=== PATIENT | female | born 1925 ===

== ENCOUNTER 2016-05-15 13:52 | Inpatient (IN) | payer MEDICARE, MEDICAID ==
--- NOTE | 2016-05-15 14:11 | ED PDOC ---
HPI: SOB/CHF/COPD Time Seen by Provider: 05/15/16 14:07 Chief Complaint (Nursing): Chest Pain Chief Complaint (Provider): shortness of breath History Per: Patient History/Exam Limitations: no limitations Current Symptoms Are (Timing): Still Present Additional Complaint(s): 89yo female comes to the ED complaining of shortness of breath, with chest tightness. Patient has had cough with white sputum for 1.5 months. No fever. She 's been using her inhaler without relief. Arnol Mccoy Past Medical History Reviewed: Historical Data, Nursing Documentation, Vital Signs Vital Signs: Last Vital Signs Temp 98.0 F 05/15/16 14:06 Pulse 98 H 05/15/16 16:32 Resp 20 05/15/16 16:32 BP 150/90 05/15/16 16:32 Pulse Ox 99 05/15/16 14:14 - Medical History PMH: Asthma, Diabetes, HTN, Hypercholesterolemia, Osteoporosis - Surgical History Surgical History: Cholecystectomy, - Family History Family History: States: Unknown Family Hx - Living Arrangements Living Arrangements: With Family - Home Medications Home Medications: Ambulatory Orders Medication Instructions Recorded Albuterol Sulfate [Proair Hfa] 1 puff IH BID 05/15/16 Alendronate [Fosamax] 5 mg PO DAILY 05/15/16 DULoxetine [Cymbalta] 60 mg PO BID PRN 05/15/16 Glimepiride [Amaryl] 1 mg PO DAILY 05/15/16 Lisinopril [Zestril] 10 mg PO DAILY 05/15/16 Memantine HCl 10 mg PO DAILY 05/15/16 MetFORMIN [glucOPHAGE] 1,000 mg PO BID 05/15/16 Montelukast [Singulair] 10 mg PO DAILY 05/15/16 SITagliptin [Januvia] 100 mg PO DAILY 05/15/16 amLODIPine [Norvasc] 5 mg PO DAILY 05/15/16 - Allergies Allergies/Adverse Reactions: Allergies Allergy/AdvReac Type Severity Reaction Status Date / Time No Known Allergies Allergy Verified 08/29/14 18:26 Review of Systems ROS Statement: Except As Marked, All Systems Reviewed And Found Negative Constitutional: Negative for: Fever Cardiovascular: Positive for: Chest Pain Respiratory: Positive for: Cough, Shortness of Breath, Sputum Physical Exam - Reviewed Nursing Documentation Reviewed: Yes Vital Signs Reviewed: Yes - Physical Exam Appears: Positive for: Well, Non-toxic, No Acute Distress Head Exam: Positive for: ATRAUMATIC, NORMAL INSPECTION, NORMOCEPHALIC Skin: Positive for: Warm, Dry Eye Exam: Positive for: EOMI, PERRL Cardiovascular/Chest: Positive for: Regular Rate, Rhythm Respiratory: Positive for: Rhonchi (scattered), Wheezing (expiratory). Negative for: Rales, Respiratory Distress Extremity: Positive for: Normal ROM Neurologic/Psych: Positive for: Alert, Oriented - ECG O2 Sat by Pulse Oximetry: 99 (RA) Pulse Ox Interpretation: Normal Disposition - Clinical Impression Clinical Impression: Bronchitis, Exacerbation of asthma, Failure of outpatient treatment - Patient ED Disposition Is Patient to be Admitted: Yes - Disposition Disposition Time: 17:03 Condition: FAIR - Pt Status Changed To: Hospital Disposition Of: Inpatient - Admit Certification Admit to Inpatient:: After my assessment, the patient will require hospitalization for at least two midnights. This is because of the severity of symptoms shown, intensity of services needed, and/or the medical risk in this patient being treated as an outpatient. - POA Present On Arrival: None Additional Comments - Additional Comments Additional Comments: Scribe Attestation: Documented by Malik Fritz acting as a scribe for Johan Camejo MD. Provider Scribe Attestation: All medical record entries made by the Scribe were at my direction and personally dictated by me. I have reviewed the chart and agree that the record accurately reflects my personal performance of the history, physical exam, medical decision making, and the department course for this patient. I have also personally directed, reviewed, and agree with the discharge instructions and disposition.
[2016-05-15] MEDS ORDERED: Albuterol-Ipratrop 3 mg / 0.5 (3 ml) UD IH STA (14:14)
--- NOTE | 2016-05-15 14:39 | RAD ---
HISTORY: SOB COMPARISON: Chest x-ray performed 11/21/10 TECHNIQUE: Chest PA and lateral FINDINGS: LUNGS: Chronic appearing interstitial markings. Biapical pleural thickening. Right upper lobe atelectasis or infiltrates, right greater than left. Please note that chest x-ray has limited sensitivity for the detection of pulmonary masses. PLEURA: No significant pleural effusion identified. Question tiny right apical pneumothorax versus artifact due to confluence of shadows. CARDIOVASCULAR: Heart size appears within normal limits. Ectatic aorta. OSSEOUS STRUCTURES: Osseous demineralization. Degenerative changes. VISUALIZED UPPER ABDOMEN: Unremarkable. OTHER FINDINGS: None. IMPRESSION: Question tiny right apical pneumothorax versus artifactual appearance due to confluence of shadows. Expiratory chest x-ray suggested for further assessment. Chronic appearing interstitial markings. Biapical pleural thickening. Right upper lobe atelectasis or infiltrates, right greater than left. Findings discussed with Dr. Camejo on 05/15/16 at 2:34 p.m..
[2016-05-15] MEDS ORDERED: Albuterol-Ipratrop 3 mg / 0.5 (3 ml) UD ONE (14:45)
[2016-05-15 14:56] LABS: VENOUS BLOOD GAS BASE EXCESS 6.1 mmol/L (0.0-2.0); VENOUS BLOOD GAS PCO2 61 mmHg (40-60); VENOUS BLOOD PH 7.35 (7.32-7.43)
[2016-05-15] MEDS ORDERED: Azithromycin 500 MG in Sodium Chloride 0.9% 250 ML IVPB STA (14:58)
[2016-05-15] MEDS ORDERED: cefTRIAXone (Rocephin) 1 gm Inj ONE (15:09)
--- NOTE | 2016-05-15 16:47 | CT ---
CT chest without IV contrast Indication: Pneumothorax on chest x-ray Technique: Contiguous axial images were obtained through the chest without intravenous contrast enhancement. Sagittal and coronal reconstructions were generated and reviewed. Radiation dose (DLP): 245.98 MGy-cm. Comparison: Chest x-ray performed earlier the same day Findings: Visualized portions of the inferior thyroid gland appear heterogeneous. The mediastinal and hilar vascular structures appear within normal limits. The heart appears within normal limits of size. Dense coronary artery calcifications. Sub cm mediastinal lymph nodes, nonspecific. Please note the lack of IV contrast limits evaluation for adenopathy, in particular hilar adenopathy. Coarsened chronic appearing interstitial markings most prominent within the lung apices, right greater than left. No pleural effusion. No pneumothorax. Emphysematous changes. Limited visualization of the upper abdomen demonstrates 11 mm low-density lesion within the right hepatic lobe, possibly cyst. Osseous demineralization. Kyphosis. Multilevel degenerative changes. Impression: No pneumothorax. Appearance on chest radiograph performed the same day artifactual. Coarse and chronic appearing interstitial markings most prominent within the lung apices, right greater than left. Emphysematous changes. Heterogeneous appearance of the thyroid gland. Hepatic lobe low-density lesion, possibly cyst.
[2016-05-15 17:03] LABS: ALKALINE PHOSPHATASE 61 U/L (38-126); ALT/SGPT 26 U/L (9-52); AST/SGOT 48 U/L (14-36); BILIRUBIN,TOTAL 0.7 mg/dl (0.2-1.3); BLOOD UREA NITROGEN 15 mg/dl (7-17); CALCIUM 9.9 mg/dL (8.4-10.2); CARBON DIOXIDE 24 mmol/L (22-30); CHLORIDE 99 mmol/L (98-107); GFR AFRICAN-AMERICAN > 60; GLUCOSE,RANDOM 214 mg/dL (65-105); SODIUM 132 mmol/l (132-148); TOTAL PROTEIN 8.6 G/DL (6.3-8.2)
[2016-05-15 17:09] LABS: POTASSIUM 5.6 MMOL/L (3.6-5.0)
[2016-05-15 17:18] LABS: BASO # 0.1 K/uL (0.0-0.2); BASO % 1.1 % (0.0-2.0); EOS # 0.4 K/uL (0.0-0.7); EOS % 5.7 % (0.0-4.0); HEMATOCRIT 41.3 % (34.0-47.0); LYMPH # 1.3 K/uL (1.0-4.3); LYMPH % 17.2 % (20.0-40.0); MEAN CELL VOLUME 93.7 fl (81.0-99.0); MEAN CORPUSCULAR HEMOGLOBIN 31.2 pg (27.0-31.0); MEAN CORPUSCULAR HGB CONC 33.3 g/dL (33.0-37.0); MEAN PLATELET VOLUME 9.6 fl (7.2-11.7); MONO # 0.3 K/uL (0.0-0.8); MONO % 4.4 % (0.0-10.0); NEUT # 5.6 K/uL (1.8-7.0); NEUT % 71.6 % (50.0-75.0); NRBC % 0.1 % (0.0-0.0); RED CELL DISTRIBUTION WIDTH 13.2 % (11.5-14.5); WHITE BLOOD COUNT 7.8 K/uL (4.8-10.8)
--- NOTE | 2016-05-16 07:17 | CARD ---
APPROVED REPORT EKG Measurement Heart [id number] <Conclusion> Normal sinus rhythm Nonspecific T wave abnormality Abnormal ECG
[2016-05-16 08:03] VITALS: BMI 17.2
[2016-05-16] MEDS ORDERED: GlipiZIDE 2.5 mg SR Tab PO SCH (09:00)
[2016-05-16] MEDS ORDERED: ALENDRONATE 10 MG TAB PO SCH (09:00)
[2016-05-16] MEDS: Albuterol HFA 90 mcg/actuation (8 g) IH SCH ×2 (10:35→16:31)
[2016-05-16 11:52] LABS: BLOOD UREA NITROGEN 15 mg/dl (7-17); CALCIUM 9.2 mg/dL (8.4-10.2); CARBON DIOXIDE 25 mmol/L (22-30); CHLORIDE 102 mmol/L (98-107); GFR AFRICAN-AMERICAN > 60; GLUCOSE,RANDOM 257 mg/dL (65-105); SODIUM 140 mmol/l (132-148)
--- NOTE | 2016-05-16 14:05 | CP.PCM.HP ---
<Rosa Burleson - Last Filed: 05/16/16 14:06> History of Present Illness - History of Present Illness History of Present Illness: Pt is a 89 y/o female with history of diabetes, HTN , mild intermitent asthma who presented to ED with cc of sob, chest tightness and non productive cough. Patient has had cough with white sputum for 1.5 months. No fever. She's been using her inhaler without relief. Pt was seen and examined at bedside this morning, sob and chest tightness is much better, denies any nausea, vomiting, diarrhea, palpitations and headaches Present on Admission - Present on Admission Any Indicators Present on Admission: Yes History of Uncontrolled Diabetes: Yes Review of Systems - Review of Systems All systems: reviewed and no additional remarkable complaints except Review of Systems: per HPI Past Patient History - Infectious Disease Hx of Infectious Diseases: None - Past Social History Smoking Status: Never Smoked - CARDIAC Hx Hypercholesterolemia: Yes Hx Hypertension: Yes - PULMONARY Hx Asthma: Yes - ENDOCRINE/METABOLIC Hx Endocrine Disorders: Yes - MUSCULOSKELETAL/RHEUMATOLOGICAL Hx Falls: No Hx Osteoporosis: Yes - PSYCHIATRIC Hx Substance Use: No - SURGICAL HISTORY Hx Cholecystectomy: Yes - ANESTHESIA Hx Anesthesia: Yes Hx Anesthesia Reactions: No Meds Allergies/Adverse Reactions: Allergies Allergy/AdvReac Type Severity Reaction Status Date / Time No Known Allergies Allergy Verified 08/29/14 18:26 Physical Exam - Constitutional Appears: Non-toxic, No Acute Distress - Eye Exam Eye Exam: Normal appearance - ENT Exam ENT Exam: Mucous Membranes Moist - Respiratory Exam Respiratory Exam: Clear to Auscultation Bilateral, NORMAL BREATHING PATTERN. absent: Decreased Breath Sounds, Wheezes, Respiratory Distress - Cardiovascular Exam Cardiovascular Exam: REGULAR RHYTHM, +S1, +S2 - GI/Abdominal Exam GI & Abdominal Exam: Normal Bowel Sounds, Soft. absent: Tenderness - Extremities Exam Extremities exam: Negative for: calf tenderness - Neurological Exam Neurological exam: CN II-XII Intact Results - Vital Signs Recent Vital Signs: Last Vital Signs Temp 98.1 F 05/16/16 08:00 Pulse 77 05/16/16 08:00 Resp 18 05/16/16 08:00 BP 134/67 05/16/16 08:00 Pulse Ox 98 05/16/16 08:00 - Labs Result Diagrams: 05/15/16 14:40 05/16/16 11:40 Labs: Laboratory Results - last 24 hr 05/16/16 05/16/16 10:27 11:40 Sodium 140 Potassium 4.0 Chloride 102 Carbon Dioxide 25 Anion Gap 17 BUN 15 Creatinine 0.6 L Est GFR ( Amer) > 60 Est GFR (Non-Af Amer) > 60 Random Glucose 257 H Calcium 9.2 Troponin I < 0.0120 Assessment & Plan - Assessment and Plan (Free Text) Assessment: 89 y/o female diabetic, HTN and HLD admitted for asthma exacerbation Plan: 1. Mild Intermittent acute asthma exacerbation Continue with inhaler as ordered Steriod Q6hrs as ordered, will trend down in the Am continue to monitor 2. Non insulin dependent diabetic Accuchecks SSI resume home meds 3. HTN resume home meds monitor BP 5. Diet- heart healthy 6. DVT prophylaxis- Lovenox SC <Paulie Weaver - Last Filed: 05/19/16 12:38> Results - Vital Signs Recent Vital Signs: Last Vital Signs Temp 98.3 F 05/19/16 08:06 Pulse 66 05/19/16 09:21 Resp 18 05/19/16 08:06 BP 120/74 05/19/16 09:21 Pulse Ox 99 05/19/16 08:06 - Labs Result Diagrams: 05/15/16 14:40 05/16/16 11:40 Labs: Laboratory Results - last 24 hr 05/18/16 05/18/16 05/18/16 11:25 16:05 21:46 POC Glucose (mg/dL) 360 H 110 254 H Assessment & Plan - Assessment and Plan (Free Text) Assessment: Patient was personally seen and examined by me in rounds with residents. Available labs and diagnostic data reviewed. Case, Patient's condition and management plan discussed with residents in rounds. Agree with resident's documentation. Plan: As ordered. Paulie Weaver MD
--- NOTE | 2016-05-16 14:45 | PQF GENQUE ---
Dr. Weaver, (1)In agreement with BMI: 17.2: listed in the EMR ? if yes: (2) please include the BMI in your progress note (3) is there an associated diagnosis to go along with the BMI? or Small framed etc. OR: Disagree OR: Other explanation of clinical findings This form is a permanent part of the medical record Clarification of your documentation is requested to better reflect the severity of illness and intensity of treatment of your patient. Indicators present [] Specify: [] [] Specify: [] [] Specify: [] [] Specify: [] Location in the medical record that reflects the above clinical findings: [] Treatment Provided: [] PHYSICIAN'S RESPONSE Based on your medical judgment of the clinical indicators outlined above please clarify the following: [] Practitioner response [] If unable to determine, please check the box, sign and date. Present On Admission (POA) Indicator: [] Present at the time of admission [] Not present at the time of admission [] Clinically Undetermined In responding to this query, please exercise your independent professional judgment. The fact that a question is asked does not imply that any particular answer is desired or expected. Thank you for your clarification on this documentation. If you have any questions please call:[ ] * Thank you, [ ] box car checker DEBRA
--- NOTE | 2016-05-16 14:53 | PQF GENQUE ---
Dr. Weaver, (1) COPD ruled in or ruled out? (2) if COPD is ruled in acuity? : Stable versus Acute Exacerbation ? OR: Unable to determine OR: Other explanation of clinical finding ER note: HPI: SOB/CHF/COPD H and P: Mild Intermittent acute asthma exacerbation -inhaler, steroid IV q 6 hr.: trend down in AM This form is a permanent part of the medical record Clarification of your documentation is requested to better reflect the severity of illness and intensity of treatment of your patient. Indicators present [] Specify: [] [] Specify: [] [] Specify: [] [] Specify: [] Location in the medical record that reflects the above clinical findings: [] Treatment Provided: [] PHYSICIAN'S RESPONSE Based on your medical judgment of the clinical indicators outlined above please clarify the following: [] Practitioner response [] If unable to determine, please check the box, sign and date. Present On Admission (POA) Indicator: [] Present at the time of admission [] Not present at the time of admission [] Clinically Undetermined In responding to this query, please exercise your independent professional judgment. The fact that a question is asked does not imply that any particular answer is desired or expected. Thank you for your clarification on this documentation. If you have any questions please call. * Thank you, Debo Rodriguez RN BSN ext. #[phone] MTDD
[2016-05-16] MEDS: methylPREDNISolone 60 MG in Sodium Chloride 0.9% 50 ML IVPB SCH ×2 (16:30→21:27)
[2016-05-16] MEDS: Enoxaparin 40 mg Syringe SC SCH (16:32)
--- NOTE | 2016-05-16 21:19 | CP.PCM.CON ---
History of Present Illness - History of Present Illness History of Present Illness: I was asked to see patiient by Dr. Weaver. Patient is a 89 year old female with PMH HTN, DM, hypercholesterolemia who presents with dyspnea. The patient has noted symptoms for the last month, consisting of progressive cough, productive of yellowish sputum, The patient had continued dyspnea, and therefore presented to [facility]. She appeared volume overlaoded in the ER. She denies chest pain. Review of Systems - Constitutional Constitutional: absent: As Per HPI, Anorexia, Chills, Daytime Sleepiness, Excessive Sweating, Fatigue, Fever, Frequent Falls, Headache, Increased Appetite , Lethargy, Malaise, Night Sweats, Snoring, Sleep Apnea, Weight Gain, Weight Loss, Weakness, Other - EENT Eyes: absent: As Per HPI, Blind Spots, Blurred Vision, Change in Vision, Decreased Night Vision, Diplopia, Discharge, Dry Eye, Exophthalmos, Floaters, Irritation, Itchy Eyes, Loss of Peripheral Vision, Pain, Photophobia, Requires Corrective Lenses, Sees Flashes, Spots in Vision, Tunnel Vision, Other Visual Disturbances, Loss of Vision, Other Ears: absent: As Per HPI, Decreased Hearing, Ear Discharge, Ear Pain, Tinnitus, Abnormal Hearing, Disequilibrium, Dizziness, Other Nose/Mouth/Throat: absent: As Per HPI, Epistaxis, Nasal Congestion, Nasal Discharge, Nasal Obstruction, Nasal Trauma, Nose Pain, Post Nasal Drip, Sinus Pain, Sinus Pressure, Bleeding Gums, Change in Voice, Dental Pain, Dry Mouth, Dysphagia, Halitosis, Hoarsness, Lip Swelling, Mouth Lesions, Mouth Pain, Odynophagia, Sore Throat, Throat Swelling, Tongue Swelling, Facial Pain, Neck Pain, Neck Mass, Other - Breasts Breasts: absent: As Per HPI, Change in Shape, Mass, Pain, Nipple Discharge, Nipple Inversion, Skin Changes, Swelling, Other - Cardiovascular Cardiovascular: Dyspnea - Respiratory Respiratory: Cough, Dyspnea - Gastrointestinal Gastrointestinal: absent: As Per HPI, Abdominal Pain, Belching, Bloating, Change in Bowel Habits, Change in Stool Character, Coffee Ground Emesis, Constipation, Cramping, Diarrhea, Dyspepsia, Dysphagia, Early Satiety, Excessive Flatus, Fecal Incontinence, Heartburn, Hematemesis, Hematochezia, Loose Stools, Melena, Nausea, Odynophagia, Temesmus, Vomiting, Other - Genitourinary Genitourinary: absent: As Per HPI, Change in Urinary Stream, Difficulty Urinating, Dysuria, Flank Pain, Hematuria, Pyuria, Nocturia, Urinary Incontinence, Urinary Frequency, Urinary Hesitance, Urinary Urgency, Voiding Freq/Small Amts, Freq UTI, Hx Renal/Bladder Calculi, Hx /Renal Surgery, Bladder Distension, Other - Musculoskeletal Musculoskeletal: absent: As Per HPI, Abnormal Gait, Arthralgias, Atrophy, Back Pain, Deformity, Joint Swelling, Limited Range of Motion, Loss of Height, Muscle Cramps, Muscle Weakness, Myalgias, Neck Pain, Numbness, Radiating Pain into Limb, Stiffness, Tingling, Other - Integumentary Integumentary: absent: As Per HPI, Acne, Alopecia, Bleeding Lesions, Change in Hair, Change in Nails, Change in Pigmentation, Changing Lesions, Dry Skin, Erythema, Furuncle, Hirsutism, Lesions, New Lesions, Non-Healing Lesions, Photosensitivity, Pruritus, Rash, Skin Pain, Skin Ulcer, Sores, Striae, Swelling , Unusual Bruising, Wounds, Jaundice, Other - Neurological Neurological: absent: As Per HPI, Abnormal Gait, Abnormal Hearing, Abnormal Movements, Abnormal Speech, Behavioral Changes, Burning Sensations, Confusion, Convulsions, Disequilibrium, Dizziness, Numbness, Focal Weakness, Frequent Falls , Headaches, Lack of Coordination, Loss of Vision, Memory Loss, Paresthesias, Radicular Pain, Restless Legs, Sensory Deficit, Syncope, Tingling, Tremor, Vertigo, Weakness, Other Visual Disturbances, Other - Endocrine Endocrine: absent: As Per HPI, Change in Body Appearance, Change in Libido, Cold Intolorance, Deepening of Voice, Excessive Sweating, Fatigue, Flushing, Heat Intolorance, Increase in Ring/Shoe/Hat Size, Palpitations, Polydipsia, Polyphagia, Polyuria, Other - Hematologic/Lymphatic Hematologic: absent: As Per HPI, Easy Bleeding, Easy Bruising, Lymphadenopathy, Other Past Patient History - Infectious Disease Hx of Infectious Diseases: None - Past Social History Smoking Status: Never Smoked - CARDIAC Hx Hypercholesterolemia: Yes Hx Hypertension: Yes - PULMONARY Hx Asthma: Yes - ENDOCRINE/METABOLIC Hx Endocrine Disorders: Yes - MUSCULOSKELETAL/RHEUMATOLOGICAL Hx Falls: No Hx Osteoporosis: Yes - PSYCHIATRIC Hx Substance Use: No - SURGICAL HISTORY Hx Cholecystectomy: Yes - ANESTHESIA Hx Anesthesia: Yes Hx Anesthesia Reactions: No Meds Home Medications: Home Medication List Medication Instructions Recorded Confirmed Type Benzonatate [Tessalon Perles] 100 mg PO BID #30 sgl 05/19/16 Rx Methylprednisolone [Medrol Dose 4 mg PO DAILY #21 mg 05/19/16 Rx Pack (21 tabs)] Allergies/Adverse Reactions: Allergies Allergy/AdvReac Type Severity Reaction Status Date / Time No Known Allergies Allergy Verified 08/29/14 18:26 - Medications Medications: Current Medications Albuterol (Ventolin Hfa 90 Mcg/Actuation (8 G)) 1 puff IH BID [facility] Last Admin: 05/16/16 16:31 Dose: 1 puff Amlodipine Besylate (Norvasc) 5 mg PO DAILY [facility] Last Admin: 05/16/16 16:32 Dose: 5 mg Duloxetine HCl (Cymbalta) 60 mg PO BID PRN PRN Reason: Anxiety Enoxaparin Sodium (Lovenox) 40 mg SC DAILY [facility] PRN Reason: Protocol Last Admin: 05/16/16 16:32 Dose: 40 mg Glipizide (Glucotrol Xl) 2.5 mg PO DAILYWM [facility] Home Med (Patient's Own Medication) 1 unit PO ACB [facility] Methylprednisolone 60 mg/ (Sodium Chloride) 50.96 mls @ 100 mls/hr IVPB Q6 [facility] Last Admin: 05/16/16 16:30 Dose: 100 mls/hr Lisinopril (Zestril) 10 mg PO DAILY [facility] Last Admin: 05/16/16 10:36 Dose: 10 mg Memantine (Namenda) 10 mg PO DAILY [facility] Last Admin: 05/16/16 10:34 Dose: 10 mg Metformin HCl (Glucophage) 1,000 mg PO BID [facility] Last Admin: 05/16/16 16:33 Dose: 1,000 mg Montelukast Sodium (Singulair) 10 mg PO DAILY [facility] Last Admin: 05/16/16 10:35 Dose: 10 mg Sitagliptin Phosphate (Januvia) 100 mg PO DAILY [facility] Last Admin: 05/16/16 10:33 Dose: 100 mg Physical Exam - Constitutional Appears: Non-toxic - Head Exam Head Exam: NORMAL INSPECTION - Eye Exam Eye Exam: Normal appearance - ENT Exam ENT Exam: Mucous Membranes Moist - Neck Exam Neck exam: Positive for: Full Rom - Respiratory Exam Respiratory Exam: Decreased Breath Sounds - Cardiovascular Exam Cardiovascular Exam: REGULAR RHYTHM - GI/Abdominal Exam GI & Abdominal Exam: Normal Bowel Sounds - Rectal Exam Rectal Exam: Deferred - Extremities Exam Extremities exam: Positive for: pedal edema - Back Exam Back exam: NORMAL INSPECTION - Neurological Exam Neurological exam: Alert, Oriented x3 - Psychiatric Exam Psychiatric exam: Normal Affect - Skin Skin Exam: Normal Color Results - Vital Signs Recent Vital Signs: Last Vital Signs Temp 98.8 F 05/16/16 19:11 Pulse 92 H 05/16/16 19:11 Resp 20 05/16/16 19:11 BP 115/68 05/16/16 19:11 Pulse Ox 96 05/16/16 19:11 - Labs Result Diagrams: 05/15/16 14:40 05/16/16 11:40 Labs: Laboratory Results - last 24 hr 05/16/16 05/16/16 05/16/16 10:27 11:40 16:15 Sodium 140 Potassium 4.0 Chloride 102 Carbon Dioxide 25 Anion Gap 17 BUN 15 Creatinine 0.6 L Est GFR ( Amer) > 60 Est GFR (Non-Af Amer) > 60 POC Glucose (mg/dL) Random Glucose 257 H Calcium 9.2 Troponin I < 0.0120 < 0.0120 05/16/16 16:19 Sodium Potassium Chloride Carbon Dioxide Anion Gap BUN Creatinine Est GFR ( Amer) Est GFR (Non-Af Amer) POC Glucose (mg/dL) 166 H Random Glucose Calcium Troponin I - EKG Data EKG Interpreted by: Myself EKG shows normal: Sinus rhythm Assessment & Plan (1) Dyspnea Assessment and Plan: patient has risk factors for cardaic dysfunction. The patietn will need evaluation of ventricular function. will schedule echocardiogram Status: Acute (2) HTN (hypertension) Assessment and Plan: blood pressure control Status: Acute (3) Hypercholesterolemia Assessment and Plan: statin therapy Status: Acute (4) Non-insulin dependent type 2 diabetes mellitus Assessment and Plan: risk factors for CAD. Status: Acute
--- NOTE | 2016-05-16 21:19 | CP.PCM.CON ---
History of Present Illness - History of Present Illness History of Present Illness: patient seen/examined. full consult to follow. will obtain echocardiogram to evaluate systolic function. Past Patient History - Infectious Disease Hx of Infectious Diseases: None - Past Social History Smoking Status: Never Smoked - CARDIAC Hx Hypercholesterolemia: Yes Hx Hypertension: Yes - PULMONARY Hx Asthma: Yes - ENDOCRINE/METABOLIC Hx Endocrine Disorders: Yes - MUSCULOSKELETAL/RHEUMATOLOGICAL Hx Falls: No Hx Osteoporosis: Yes - PSYCHIATRIC Hx Substance Use: No - SURGICAL HISTORY Hx Cholecystectomy: Yes - ANESTHESIA Hx Anesthesia: Yes Hx Anesthesia Reactions: No Meds Allergies/Adverse Reactions: Allergies Allergy/AdvReac Type Severity Reaction Status Date / Time No Known Allergies Allergy Verified 08/29/14 18:26 - Medications Medications: Current Medications Albuterol (Ventolin Hfa 90 Mcg/Actuation (8 G)) 1 puff IH BID [facility] Last Admin: 05/16/16 16:31 Dose: 1 puff Amlodipine Besylate (Norvasc) 5 mg PO DAILY [facility] Last Admin: 05/16/16 16:32 Dose: 5 mg Duloxetine HCl (Cymbalta) 60 mg PO BID PRN PRN Reason: Anxiety Enoxaparin Sodium (Lovenox) 40 mg SC DAILY [facility] PRN Reason: Protocol Last Admin: 05/16/16 16:32 Dose: 40 mg Glipizide (Glucotrol Xl) 2.5 mg PO DAILYWM [facility] Home Med (Patient's Own Medication) 1 unit PO ACB [facility] Methylprednisolone 60 mg/ (Sodium Chloride) 50.96 mls @ 100 mls/hr IVPB Q6 [facility] Last Admin: 05/16/16 16:30 Dose: 100 mls/hr Lisinopril (Zestril) 10 mg PO DAILY [facility] Last Admin: 05/16/16 10:36 Dose: 10 mg Memantine (Namenda) 10 mg PO DAILY [facility] Last Admin: 05/16/16 10:34 Dose: 10 mg Metformin HCl (Glucophage) 1,000 mg PO BID [facility] Last Admin: 05/16/16 16:33 Dose: 1,000 mg Montelukast Sodium (Singulair) 10 mg PO DAILY [facility] Last Admin: 05/16/16 10:35 Dose: 10 mg Sitagliptin Phosphate (Januvia) 100 mg PO DAILY [facility] Last Admin: 05/16/16 10:33 Dose: 100 mg Results - Vital Signs Recent Vital Signs: Last Vital Signs Temp 98.8 F 05/16/16 19:11 Pulse 92 H 05/16/16 19:11 Resp 20 05/16/16 19:11 BP 115/68 05/16/16 19:11 Pulse Ox 96 05/16/16 19:11 - Labs Result Diagrams: 05/15/16 14:40 05/16/16 11:40 Labs: Laboratory Results - last 24 hr 05/16/16 05/16/16 05/16/16 10:27 11:40 16:15 Sodium 140 Potassium 4.0 Chloride 102 Carbon Dioxide 25 Anion Gap 17 BUN 15 Creatinine 0.6 L Est GFR ( Amer) > 60 Est GFR (Non-Af Amer) > 60 POC Glucose (mg/dL) Random Glucose 257 H Calcium 9.2 Troponin I < 0.0120 < 0.0120 05/16/16 16:19 Sodium Potassium Chloride Carbon Dioxide Anion Gap BUN Creatinine Est GFR ( Amer) Est GFR (Non-Af Amer) POC Glucose (mg/dL) 166 H Random Glucose Calcium Troponin I
[2016-05-16] MEDS ORDERED: Insulin Regular 100 units/ml SC ONE (22:00)
[2016-05-17] MEDS: methylPREDNISolone 60 MG in Sodium Chloride 0.9% 50 ML IVPB SCH ×4 (03:27→21:17)
[2016-05-17] MEDS ORDERED: GlipiZIDE 2.5 mg SR Tab PO SCH (08:00)
[2016-05-17] MEDS: Enoxaparin 40 mg Syringe SC SCH (09:55)
[2016-05-17] MEDS: Albuterol HFA 90 mcg/actuation (8 g) IH SCH ×2 (09:58→17:06)
--- NOTE | 2016-05-17 12:38 | CP.PCM.PN ---
<Rosa Burleson - Last Filed: 05/17/16 12:39> Subjective - Date & Time of Evaluation Date of Evaluation: 05/17/16 Time of Evaluation: 08:25 - Subjective Subjective: pt seen and examined at bedside with Dr. Weaver, states she feels ok. breathing a little better. denies any chest pain. Objective - Vital Signs/Intake and Output Vital Signs (last 24 hours): Temp Pulse Resp BP Pulse Ox 97.6 F 84 18 144/64 97 05/17/16 12:00 05/17/16 12:00 05/17/16 12:00 05/17/16 12:00 05/17/16 12:00 - Medications Medications: Current Medications Albuterol (Ventolin Hfa 90 Mcg/Actuation (8 G)) 1 puff IH BID [facility] Last Admin: 05/17/16 09:58 Dose: 1 puff Amlodipine Besylate (Norvasc) 5 mg PO DAILY [facility] Last Admin: 05/17/16 09:56 Dose: 5 mg Duloxetine HCl (Cymbalta) 60 mg PO BID PRN PRN Reason: Anxiety Enoxaparin Sodium (Lovenox) 40 mg SC DAILY [facility] PRN Reason: Protocol Last Admin: 05/17/16 09:55 Dose: 40 mg Glipizide (Glucotrol Xl) 5 mg PO DAILYWM [facility] Home Med (Patient's Own Medication) 1 unit PO ACB [facility] Methylprednisolone 60 mg/ (Sodium Chloride) 50.96 mls @ 100 mls/hr IVPB Q6 [facility] Last Admin: 05/17/16 09:57 Dose: 100 mls/hr Lisinopril (Zestril) 10 mg PO DAILY [facility] Last Admin: 05/17/16 09:58 Dose: 10 mg Memantine (Namenda) 10 mg PO DAILY [facility] Last Admin: 05/17/16 09:56 Dose: 10 mg Metformin HCl (Glucophage) 1,000 mg PO BID [facility] Last Admin: 05/17/16 09:55 Dose: 1,000 mg Montelukast Sodium (Singulair) 10 mg PO DAILY [facility] Last Admin: 05/17/16 09:57 Dose: 10 mg Sitagliptin Phosphate (Januvia) 100 mg PO DAILY [facility] Last Admin: 05/17/16 09:55 Dose: 100 mg - Labs Labs: 05/16/16 11:40 - Constitutional Appears: Non-toxic, No Acute Distress - Head Exam Head Exam: NORMOCEPHALIC - Eye Exam Eye Exam: Normal appearance - ENT Exam ENT Exam: Mucous Membranes Moist - Respiratory Exam Respiratory Exam: Clear to Ausculation Bilateral, NORMAL BREATHING PATTERN. absent: Rhonchi, Wheezes - Cardiovascular Exam Cardiovascular Exam: REGULAR RHYTHM, +S1, +S2 - GI/Abdominal Exam GI & Abdominal Exam: Soft, Normal Bowel Sounds - Extremities Exam Extremities Exam: absent: Calf Tenderness - Neurological Exam Neurological Exam: Alert, Awake Assessment and Plan - Assessment and Plan (Free Text) Assessment: 89 y/o female diabetic, HTN and HLD admitted for asthma exacerbation Plan: 1. Mild Intermittent acute asthma exacerbation Continue with inhaler as ordered Steriod Q12hrs as ordered, will trend down in the Am cardiology consulted to rule out cardiac etiology, echo ordered continue to monitor 2. Non insulin dependent diabetic Accuchecks SSI resume home meds 3. HTN resume home meds monitor BP 5. Diet- heart healthy 6. DVT prophylaxis- Lovenox SC <Paulie Weaver K - Last Filed: 05/19/16 12:41> Objective - Vital Signs/Intake and Output Vital Signs (last 24 hours): Temp Pulse Resp BP Pulse Ox 98.3 F 66 18 120/74 99 05/19/16 08:06 05/19/16 09:21 05/19/16 08:06 05/19/16 09:21 05/19/16 08:06 - Medications Medications: Current Medications Albuterol (Ventolin Hfa 90 Mcg/Actuation (8 G)) 1 puff IH BID [facility] Last Admin: 05/19/16 09:23 Dose: 1 puff Amlodipine Besylate (Norvasc) 5 mg PO DAILY [facility] Last Admin: 05/19/16 09:21 Dose: 5 mg Benzonatate (Tessalon Perles) 200 mg PO TID PRN PRN Reason: Cough Last Admin: 05/18/16 22:52 Dose: 200 mg Duloxetine HCl (Cymbalta) 60 mg PO BID PRN PRN Reason: Anxiety Last Admin: 05/19/16 09:29 Dose: 60 mg Enoxaparin Sodium (Lovenox) 40 mg SC DAILY [facility] PRN Reason: Protocol Last Admin: 05/19/16 09:19 Dose: 40 mg Glipizide (Glucotrol Xl) 5 mg PO DAILYWM [facility] Last Admin: 05/19/16 09:21 Dose: 5 mg Home Med (Patient's Own Medication) 1 unit PO ACB [facility] Last Admin: 05/19/16 09:22 Dose: Not Given Methylprednisolone 20 mg/ (Sodium Chloride) 50.32 mls @ 100 mls/hr IVPB Q8 [facility] Last Admin: 05/19/16 09:22 Dose: 100 mls/hr Insulin Human Regular (Humulin R) 0 units SC ACHS [facility] PRN Reason: Protocol Last Admin: 05/19/16 06:38 Dose: 3 units Lisinopril (Zestril) 10 mg PO DAILY [facility] Last Admin: 05/19/16 09:20 Dose: 10 mg Memantine (Namenda) 10 mg PO DAILY [facility] Last Admin: 05/19/16 09:20 Dose: 10 mg Metformin HCl (Glucophage) 1,000 mg PO BID [facility] Last Admin: 05/19/16 09:20 Dose: 1,000 mg Montelukast Sodium (Singulair) 10 mg PO DAILY [facility] Last Admin: 05/19/16 09:21 Dose: 10 mg Sitagliptin Phosphate (Januvia) 100 mg PO DAILY [facility] Last Admin: 05/19/16 09:21 Dose: 100 mg - Labs Labs: 05/16/16 11:40 Assessment and Plan - Assessment and Plan (Free Text) Assessment: Patient was personally seen and examined by me in rounds with residents. Available labs and diagnostic data reviewed. Case, Patient's condition and management plan discussed with residents in rounds. Agree with resident's documentation. Plan: As ordered. Paulie Weaver MD
[2016-05-17] MEDS: GlipiZIDE 5 mg SR Tab PO SCH (13:17)
[2016-05-17] MEDS: ALENDRONATE PO SCH (13:17)
[2016-05-17] MEDS: Insulin Regular 100 units/ml SC SCH ×2 (18:12→21:16)
--- NOTE | 2016-05-17 19:49 | CP.PCM.PN ---
Subjective - Date & Time of Evaluation Date of Evaluation: 05/17/16 Time of Evaluation: 19:00 - Subjective Subjective: no current dyspnea. Objective - Vital Signs/Intake and Output Vital Signs (last 24 hours): Temp Pulse Resp BP Pulse Ox 98.2 F 90 20 136/67 100 05/17/16 19:27 05/17/16 19:27 05/17/16 19:27 05/17/16 19:27 05/17/16 19:27 - Medications Medications: Current Medications Albuterol (Ventolin Hfa 90 Mcg/Actuation (8 G)) 1 puff IH BID [facility] Last Admin: 05/17/16 17:06 Dose: 1 puff Amlodipine Besylate (Norvasc) 5 mg PO DAILY [facility] Last Admin: 05/17/16 09:56 Dose: 5 mg Duloxetine HCl (Cymbalta) 60 mg PO BID PRN PRN Reason: Anxiety Enoxaparin Sodium (Lovenox) 40 mg SC DAILY [facility] PRN Reason: Protocol Last Admin: 05/17/16 09:55 Dose: 40 mg Glipizide (Glucotrol Xl) 5 mg PO DAILYWM [facility] Last Admin: 05/17/16 13:17 Dose: 5 mg Home Med (Patient's Own Medication) 1 unit PO ACB [facility] Last Admin: 05/17/16 13:17 Dose: Not Given Methylprednisolone 60 mg/ (Sodium Chloride) 50.96 mls @ 100 mls/hr IVPB Q6 [facility] Last Admin: 05/17/16 17:06 Dose: 100 mls/hr Insulin Human Regular (Humulin R) 0 units SC ACHS [facility] PRN Reason: Protocol Last Admin: 05/17/16 18:12 Dose: 6 units Lisinopril (Zestril) 10 mg PO DAILY [facility] Last Admin: 05/17/16 09:58 Dose: 10 mg Memantine (Namenda) 10 mg PO DAILY [facility] Last Admin: 05/17/16 09:56 Dose: 10 mg Metformin HCl (Glucophage) 1,000 mg PO BID [facility] Last Admin: 05/17/16 17:05 Dose: 1,000 mg Montelukast Sodium (Singulair) 10 mg PO DAILY [facility] Last Admin: 05/17/16 09:57 Dose: 10 mg Sitagliptin Phosphate (Januvia) 100 mg PO DAILY [facility] Last Admin: 05/17/16 09:55 Dose: 100 mg - Labs Labs: 05/16/16 11:40 - Constitutional Appears: Non-toxic - Head Exam Head Exam: NORMAL INSPECTION - Eye Exam Eye Exam: Normal appearance - ENT Exam ENT Exam: Mucous Membranes Moist - Neck Exam Neck Exam: Full ROM - Respiratory Exam Respiratory Exam: NORMAL BREATHING PATTERN - Cardiovascular Exam Cardiovascular Exam: REGULAR RHYTHM - GI/Abdominal Exam GI & Abdominal Exam: Normal Bowel Sounds - Rectal Exam Rectal Exam: Deferred - Extremities Exam Extremities Exam: absent: Pedal Edema - Back Exam Back Exam: NORMAL INSPECTION - Neurological Exam Neurological Exam: Alert - Psychiatric Exam Psychiatric exam: Normal Affect - Skin Skin Exam: Normal Color Assessment and Plan (1) Dyspnea Assessment & Plan: I reviewed the echocardiogram. LV function is normal. Patient joann has a componenet of diastolic dysfunction, acute on chronic. conitnue medical magmt and blood pressure control. Status: Acute (2) HTN (hypertension) Assessment & Plan: BP control Status: Acute
[2016-05-18] MEDS: methylPREDNISolone 60 MG in Sodium Chloride 0.9% 50 ML IVPB SCH (03:58)
--- NOTE | 2016-05-18 07:45 | CARD ---
APPROVED REPORT EXAM: Two-dimensional and M-mode echocardiogram with Doppler and color Doppler. Other Information Quality : AverageRhythm : NSR INDICATION Dyspnea 2D DIMENSIONS IVSd1.34 (0.7-1.1cm)LVDd3.25 (3.9-5.9cm) PWd1.00 (0.7-1.1cm)IVSs1.28 (0.8-1.2cm) LVDs1.84 (2.5-4.0cm)FS (%) 43.3 % PWs1.33 (0.8-1.2cm) M-Mode DIMENSIONS Left Atrium (MM)2.37 (2.5-4.0cm)IVSd1.38 (0.7-1.1cm) Aortic Root2.78 (2.2-3.7cm)LVDd4.52 (4.0-5.6cm) Aortic Cusp Exc.1.99 (1.5-2.0cm)PWd1.16 (0.7-1.1cm) IVSs1.41 cmFS (%) 35 % LVDs2.95 (2.0-3.8cm)PWs1.19 cm Mitral Valve E/A ratio0.0 TDI E/Lateral E'0.0E/Medial E'0.0 Tricuspid Valve TR Peak [id number] Peak Gr.25mmHg [id number] LEFT VENTRICLE The left ventricle is normal size. There is normal left ventricular wall thickness. Left ventricle systolic function is normal. The Ejection Fraction is >70%. There is normal LV segmental wall motion. Transmitral Doppler flow pattern is Grade I-abnormal relaxation pattern. RIGHT VENTRICLE The right ventricle is normal size. There is normal right ventricular wall thickness. The right ventricular systolic function is normal. ATRIA The left atrium size is normal. The right atrium size is normal. AORTIC VALVE The aortic valve is normal in structure and function. No aortic regurgitation is present. There is no aortic valvular stenosis. MITRAL VALVE Anterior mitral leaflet appeared thickened and sclerotic but moved freely. Mitral annular calcification is moderate. There is no evidence of mitral valve prolapse. There is no mitral valve stenosis. Mitral regurgitation is mild to moderate. TRICUSPID VALVE The tricuspid valve is normal in structure. There is mild tricuspid regurgitation. Right ventricular systolic pressure is estimated at 35 mmHg. There is mild pulmonary hypertension. PULMONIC VALVE The pulmonary valve is normal in structure and function. There is no pulmonic valvular regurgitation. GREAT VESSELS The aortic root is normal in size. The IVC is normal in size and collapses >50% with inspiration. PERICARDIAL EFFUSION The pericardium appears normal. <Conclusion> The left ventricle is normal size. There is normal left ventricular wall thickness. There is normal LV segmental wall motion. Left ventricle systolic function is normal. The Ejection Fraction is >70%. Transmitral Doppler flow pattern is Grade I-abnormal relaxation pattern. Mitral regurgitation is mild to moderate.
[2016-05-18] MEDS: Enoxaparin 40 mg Syringe SC SCH (09:14)
[2016-05-18] MEDS: GlipiZIDE 5 mg SR Tab PO SCH (09:15)
[2016-05-18] MEDS: Albuterol HFA 90 mcg/actuation (8 g) IH SCH ×2 (09:16→16:40)
[2016-05-18] MEDS: Insulin Regular 100 units/ml SC SCH ×4 (09:22→22:51)
[2016-05-18] MEDS: ALENDRONATE PO SCH (09:23)
--- NOTE | 2016-05-18 13:20 | CP.PCM.PN ---
<Rosa Burleson - Last Filed: 05/18/16 13:52> Subjective - Date & Time of Evaluation Date of Evaluation: 05/18/16 Time of Evaluation: 08:35 - Subjective Subjective: Pt seen and examined at bedside, spoke with pt's daughter and answered all questions. Pt is doing well, sob has resolved, cough has improved. denies any chest pain, nausea or vomiting Objective - Vital Signs/Intake and Output Vital Signs (last 24 hours): Temp Pulse Resp BP Pulse Ox 98.4 F 69 18 146/76 99 05/18/16 12:33 05/18/16 12:33 05/18/16 12:33 05/18/16 12:33 05/18/16 12:33 - Medications Medications: Current Medications Albuterol (Ventolin Hfa 90 Mcg/Actuation (8 G)) 1 puff IH BID [facility] Last Admin: 05/18/16 09:16 Dose: 1 puff Amlodipine Besylate (Norvasc) 5 mg PO DAILY [facility] Last Admin: 05/18/16 09:22 Dose: 5 mg Benzonatate (Tessalon Perles) 200 mg PO TID PRN PRN Reason: Cough Last Admin: 05/18/16 05:08 Dose: 200 mg Duloxetine HCl (Cymbalta) 60 mg PO BID PRN PRN Reason: Anxiety Last Admin: 05/18/16 09:14 Dose: 60 mg Enoxaparin Sodium (Lovenox) 40 mg SC DAILY [facility] PRN Reason: Protocol Last Admin: 05/18/16 09:14 Dose: 40 mg Glipizide (Glucotrol Xl) 5 mg PO DAILYWM [facility] Last Admin: 05/18/16 09:15 Dose: 5 mg Home Med (Patient's Own Medication) 1 unit PO ACB [facility] Last Admin: 05/18/16 09:23 Dose: Not Given Methylprednisolone 40 mg/ (Sodium Chloride) 50.64 mls @ 100 mls/hr IVPB Q8 [facility] Insulin Human Regular (Humulin R) 0 units SC ACHS [facility] PRN Reason: Protocol Last Admin: 05/18/16 11:37 Dose: 8 units Lisinopril (Zestril) 10 mg PO DAILY [facility] Last Admin: 05/18/16 09:15 Dose: 10 mg Memantine (Namenda) 10 mg PO DAILY [facility] Last Admin: 05/18/16 09:14 Dose: 10 mg Metformin HCl (Glucophage) 1,000 mg PO BID [facility] Last Admin: 05/18/16 09:14 Dose: 1,000 mg Montelukast Sodium (Singulair) 10 mg PO DAILY [facility] Last Admin: 05/18/16 09:17 Dose: 10 mg Sitagliptin Phosphate (Januvia) 100 mg PO DAILY [facility] Last Admin: 05/18/16 09:14 Dose: 100 mg - Labs Labs: 05/16/16 11:40 - Constitutional Appears: Non-toxic, No Acute Distress - Head Exam Head Exam: NORMOCEPHALIC - Eye Exam Eye Exam: Normal appearance, PERRL - ENT Exam ENT Exam: Mucous Membranes Moist - Neck Exam Neck Exam: Normal Inspection - Respiratory Exam Respiratory Exam: Clear to Ausculation Bilateral, NORMAL BREATHING PATTERN. absent: Wheezes - Cardiovascular Exam Cardiovascular Exam: REGULAR RHYTHM, +S1, +S2 - GI/Abdominal Exam GI & Abdominal Exam: Soft, Normal Bowel Sounds. absent: Tenderness - Neurological Exam Neurological Exam: Alert, Awake, CN II-XII Intact - Skin Skin Exam: Normal Color Assessment and Plan - Assessment and Plan (Free Text) Assessment: 89 y/o female diabetic, HTN and HLD admitted for asthma exacerbation Plan: 1. Mild Intermittent acute asthma exacerbation Continue with inhaler as ordered Steriod Q12hrs as ordered, will trend down in the Am 2.Cardiology recommendation appreciated LV function is normal. Patient likely has a component of diastolic dysfunction , acute on chronic. continue medical magmt and blood pressure control. 3. BMI of 17.2 - underweight Diet supplements ordered 2. Non insulin dependent diabetic Accuchecks SSI resume home meds 3. HTN resume home meds monitor BP 5. Diet- heart healthy 6. DVT prophylaxis- Lovenox SC Re Query [id number] Pt does not have COPD, ED physician note final diagnosis was not COPD the title of the template note used in the ED for patients presenting to ED with complaints of sob/cough etc is SOB/CHF/COPD - it does not mean that is the patients diagnosis <Paulie Weaver K - Last Filed: 05/19/16 12:43> Objective - Vital Signs/Intake and Output Vital Signs (last 24 hours): Temp Pulse Resp BP Pulse Ox 98.3 F 66 18 120/74 99 05/19/16 08:06 05/19/16 09:21 05/19/16 08:06 05/19/16 09:21 05/19/16 08:06 - Medications Medications: Current Medications Albuterol (Ventolin Hfa 90 Mcg/Actuation (8 G)) 1 puff IH BID [facility] Last Admin: 05/19/16 09:23 Dose: 1 puff Amlodipine Besylate (Norvasc) 5 mg PO DAILY [facility] Last Admin: 05/19/16 09:21 Dose: 5 mg Benzonatate (Tessalon Perles) 200 mg PO TID PRN PRN Reason: Cough Last Admin: 05/18/16 22:52 Dose: 200 mg Duloxetine HCl (Cymbalta) 60 mg PO BID PRN PRN Reason: Anxiety Last Admin: 05/19/16 09:29 Dose: 60 mg Enoxaparin Sodium (Lovenox) 40 mg SC DAILY [facility] PRN Reason: Protocol Last Admin: 05/19/16 09:19 Dose: 40 mg Glipizide (Glucotrol Xl) 5 mg PO DAILYWM [facility] Last Admin: 05/19/16 09:21 Dose: 5 mg Home Med (Patient's Own Medication) 1 unit PO ACB [facility] Last Admin: 05/19/16 09:22 Dose: Not Given Methylprednisolone 20 mg/ (Sodium Chloride) 50.32 mls @ 100 mls/hr IVPB Q8 [facility] Last Admin: 05/19/16 09:22 Dose: 100 mls/hr Insulin Human Regular (Humulin R) 0 units SC ACHS [facility] PRN Reason: Protocol Last Admin: 05/19/16 06:38 Dose: 3 units Lisinopril (Zestril) 10 mg PO DAILY [facility] Last Admin: 05/19/16 09:20 Dose: 10 mg Memantine (Namenda) 10 mg PO DAILY [facility] Last Admin: 05/19/16 09:20 Dose: 10 mg Metformin HCl (Glucophage) 1,000 mg PO BID [facility] Last Admin: 05/19/16 09:20 Dose: 1,000 mg Montelukast Sodium (Singulair) 10 mg PO DAILY [facility] Last Admin: 05/19/16 09:21 Dose: 10 mg Sitagliptin Phosphate (Januvia) 100 mg PO DAILY [facility] Last Admin: 03/24/17 09:21 Dose: 100 mg - Labs Labs: 05/16/16 11:40 Assessment and Plan - Assessment and Plan (Free Text) Assessment: Patient was personally seen and examined by me in rounds with residents. Available labs and diagnostic data reviewed. Case, Patient's condition and management plan discussed with residents in rounds. Agree with resident's documentation. Plan: As ordered. Paulie Weaver MD
[2016-05-18] MEDS: methylPREDNISolone 40 MG in Sodium Chloride 0.9% 50 ML IVPB SCH (16:39)
[2016-05-19] MEDS: methylPREDNISolone 40 MG in Sodium Chloride 0.9% 50 ML IVPB SCH (01:02)
[2016-05-19] MEDS: Insulin Regular 100 units/ml SC SCH ×2 (06:38→12:57)
[2016-05-19] MEDS ORDERED: methylPREDNISolone 20 MG in Sodium Chloride 0.9% 50 ML IVPB SCH (07:37)
[2016-05-19 08:07] VITALS: RESP 18
[2016-05-19] MEDS: Enoxaparin 40 mg Syringe SC SCH (09:19)
[2016-05-19] MEDS: GlipiZIDE 5 mg SR Tab PO SCH (09:21)
[2016-05-19] MEDS: ALENDRONATE PO SCH (09:22)
[2016-05-19] MEDS: Albuterol HFA 90 mcg/actuation (8 g) IH SCH (09:23)
--- NOTE | 2016-05-19 13:21 | CP.PCM.DIS ---
Provider - Provider Date of Admission: 05/15/16 17:01 Attending physician: Paulie Weaver MD Time Spent in preparation of Discharge (in minutes): 30 Diagnosis - Discharge Diagnosis (1) Bronchitis Status: Acute Hospital Course - Lab Results Lab Results: Most Recent Lab Values WBC 7.8 K/uL (4.8-10.8) 05/15/16 14:40 RBC 4.41 Mil/uL (3.80-5.20) 05/15/16 14:40 Hgb 13.8 g/dL (12.0-16.0) 05/15/16 14:40 Hct 41.3 % (34.0-47.0) 05/15/16 14:40 MCV 93.7 fl (81.0-99.0) 05/15/16 14:40 MCH 31.2 pg (27.0-31.0) H 05/15/16 14:40 MCHC 33.3 g/dL (33.0-37.0) 05/15/16 14:40 RDW 13.2 % (11.5-14.5) 05/15/16 14:40 Plt Count 230 K/uL (130-400) 05/15/16 14:40 MPV 9.6 fl (7.2-11.7) 05/15/16 14:40 Neut % (Auto) 71.6 % (50.0-75.0) 05/15/16 14:40 Lymph % (Auto) 17.2 % (20.0-40.0) L 05/15/16 14:40 [place] % (Auto) 4.4 % (0.0-10.0) 05/15/16 14:40 Eos % (Auto) 5.7 % (0.0-4.0) H 05/15/16 14:40 Baso % (Auto) 1.1 % (0.0-2.0) 05/15/16 14:40 Neut # 5.6 K/uL (1.8-7.0) 05/15/16 14:40 Lymph # 1.3 K/uL (1.0-4.3) 05/15/16 14:40 [place] # 0.3 K/uL (0.0-0.8) 05/15/16 14:40 Eos # 0.4 K/uL (0.0-0.7) 05/15/16 14:40 Baso # 0.1 K/uL (0.0-0.2) 05/15/16 14:40 pO2 26 mm/Hg (30-55) L 05/15/16 14:50 VBG pH 7.35 (7.32-7.43) 05/15/16 14:50 VBG pCO2 61 mmHg (40-60) H 05/15/16 14:50 VBG HCO3 28.2 mmol/L 05/15/16 14:50 VBG Total CO2 35.6 mmol/L (22-28) H 05/15/16 14:50 VBG O2 Sat (Calc) 45.6 % (40-65) 05/15/16 14:50 VBG Base Excess 6.1 mmol/L (0.0-2.0) H 05/15/16 14:50 VBG Potassium 4.3 mmol/L (3.6-5.2) 05/15/16 14:50 Sodium 135.0 mmol/L (132-148) 05/15/16 14:50 Chloride 102.0 mmol/L (98-107) 05/15/16 14:50 Glucose 226 mg/dL (65-105) H 05/15/16 14:50 Lactate 1.2 mmol/L (0.7-2.1) 05/15/16 14:50 FiO2 21.0 % 05/15/16 14:50 Sodium 140 mmol/l (132-148) 05/16/16 11:40 Potassium 4.0 MMOL/L (3.6-5.0) 05/16/16 11:40 Chloride 102 mmol/L (98-107) 05/16/16 11:40 Carbon Dioxide 25 mmol/L (22-30) 05/16/16 11:40 Anion Gap 17 (10-20) 05/16/16 11:40 BUN 15 mg/dl (7-17) 05/16/16 11:40 Creatinine 0.6 mg/dL (0.7-1.2) L 05/16/16 11:40 Est GFR ( Amer) > 60 05/16/16 11:40 Est GFR (Non-Af Amer) > 60 05/16/16 11:40 POC Glucose (mg/dL) 254 mg/dL (65-110) H 05/18/16 21:46 Random Glucose 257 mg/dL (65-105) H 05/16/16 11:40 Hemoglobin A1c 7.9 % (4.2-6.5) H 05/16/16 16:15 Calcium 9.2 mg/dL (8.4-10.2) 05/16/16 11:40 Total Bilirubin 0.7 mg/dl (0.2-1.3) 05/15/16 14:40 AST 48 U/L (14-36) H D 05/15/16 14:40 ALT 26 U/L (9-52) 05/15/16 14:40 Alkaline Phosphatase 61 U/L (38-126) 05/15/16 14:40 Troponin I < 0.0120 ng/mL (0.00-0.120) 05/16/16 16:15 Total Protein 8.6 G/DL (6.3-8.2) H 05/15/16 14:40 Albumin 4.2 g/dL (3.5-5.0) 05/15/16 14:40 Globulin 4.4 gm/dL (2.2-3.9) H 05/15/16 14:40 Albumin/Globulin Ratio 1.0 (1.0-2.1) 05/15/16 14:40 Venous Blood Potassium 4.3 mmol/L (3.6-5.2) 05/15/16 14:50 - Hospital Course Hospital Course: pt was admitted for bronchitis with suspected asthma vs congestive heart dx. cardiac work up ruled out CHF and pt has no history of COPD. treated with steriods to help with lung inflammation and nebulizer treatments. tolerated treatment well, now stable for discharge with routine follow up with PCP Discharge Exam - Head Exam Head Exam: NORMOCEPHALIC - Eye Exam Eye Exam: Normal appearance - ENT Exam ENT Exam: Mucous Membranes Moist - Respiratory Exam Respiratory Exam: NORMAL BREATHING PATTERN. absent: Wheezes - Cardiovascular Exam Cardiovascular Exam: REGULAR RHYTHM, +S1, +S2 - GI/Abdominal Exam GI & Abdominal Exam: Normal Bowel Sounds, Soft - Extremities Exam Extremities exam: normal inspection - Neurological Exam Neurological exam: Alert - Skin Skin Exam: Normal Color Discharge Plan - Discharge Medications Prescriptions: Methylprednisolone [Medrol Dose Pack (21 tabs)] 4 mg PO DAILY #21 mg Benzonatate [Tessalon Perles] 100 mg PO BID #30 sgl - Follow Up Plan Condition: FAIR Disposition: HOME/ ROUTINE Instructions: Asthma (DC), Chronic Bronchitis (DC)
[2016-05-19 15:53] VITALS: BP 142/73; PULSE 90; TEMP 98.2; O2SAT 95
== END 2016-05-19 16:34 | disposition home or self-care (01) | DRG 202 ==
LOC: H.ER 13:52 → H.ERHOLD 17:01 → H.TEL 21:33
PROVIDERS: ADMIT Internal Medicine; ATTEND Internal Medicine
PROC: 3E0F73Z Introduction of Anti-inflammatory into Respiratory Tract, Via Natural or Artificial Opening (ICD-10-PCS; principal; 2016-05-15)
DX: J45.21 Mild intermittent asthma with (acute) exacerbation (principal); Z68.1 Body mass index [BMI] 19.9 or less, adult; J20.9 Acute bronchitis, unspecified; E11.9 Type 2 diabetes mellitus without complications; I10 Essential (primary) hypertension; E78.5 Hyperlipidemia, unspecified; M81.0 Age-related osteoporosis without current pathological fracture; R63.6 Underweight; E78.00 Pure hypercholesterolemia, unspecified

== ENCOUNTER 2016-06-12 10:09 | Inpatient (IN) | payer MEDICARE, MEDICAID ==
[2016-06-12 10:10] VITALS: BMI 17.2
--- NOTE | 2016-06-12 10:28 | ED PDOC ---
HPI: General Adult Time Seen by Provider: 06/12/16 10:23 Chief Complaint (Nursing): Shortness Of Breath Chief Complaint (Provider): shortness of breath History Per: Patient History/Exam Limitations: no limitations Additional Complaint(s): 89yo female brought by EMS and daughter for shortness of breath since last night , worse this morning. She had a nebulizer treatment which helped a little bit. Daughter states she has cough with white sputum. PMD: at [facility] Dr. Aguilar Muñoz Past Medical History Reviewed: Historical Data, Nursing Documentation, Vital Signs Vital Signs: Last Vital Signs Temp 98.1 F 06/12/16 10:18 Pulse 120 H 06/12/16 10:18 Resp 21 06/12/16 10:18 BP 132/79 06/12/16 10:18 Pulse Ox 93 L 06/12/16 10:41 - Medical History PMH: Asthma, Diabetes, HTN, Hypercholesterolemia, Osteoporosis - Surgical History Surgical History: Cholecystectomy, - Family History Family History: States: Unknown Family Hx - Home Medications Home Medications: Ambulatory Orders Medication Instructions Recorded Albuterol Sulfate [Proair Hfa] 1 puff IH BID 05/15/16 Alendronate [Fosamax] 5 mg PO DAILY 05/15/16 DULoxetine [Cymbalta] 60 mg PO BID PRN 05/15/16 Glimepiride [Amaryl] 1 mg PO DAILY 05/15/16 Lisinopril [Zestril] 10 mg PO DAILY 05/15/16 Memantine HCl 10 mg PO DAILY 05/15/16 MetFORMIN [glucoPHAGE] 1,000 mg PO BID 05/15/16 Montelukast [Singulair] 10 mg PO DAILY 05/15/16 SITagliptin [Januvia] 100 mg PO DAILY 05/15/16 amLODIPine [Norvasc] 5 mg PO DAILY 05/15/16 Benzonatate [Tessalon Perles] 100 mg PO BID #30 sgl 05/19/16 Methylprednisolone [Medrol Dose 4 mg PO DAILY #21 mg 05/19/16 Pack (21 tabs)] - Allergies Allergies/Adverse Reactions: Allergies Allergy/AdvReac Type Severity Reaction Status Date / Time No Known Allergies Allergy Verified 06/12/16 10:23 Review of Systems ROS Statement: Except As Marked, All Systems Reviewed And Found Negative Constitutional: Negative for: Fever Respiratory: Positive for: Cough, Shortness of Breath, Sputum Physical Exam - Reviewed Nursing Documentation Reviewed: Yes Vital Signs Reviewed: Yes - Physical Exam Appears: Positive for: Well, Non-toxic, No Acute Distress Head Exam: Positive for: ATRAUMATIC, NORMAL INSPECTION, NORMOCEPHALIC Skin: Positive for: Warm, Dry Eye Exam: Positive for: EOMI, PERRL Cardiovascular/Chest: Positive for: Regular Rate, Rhythm Respiratory: Positive for: Rhonchi, Wheezing (expiratory). Negative for: Respiratory Distress Gastrointestinal/Abdominal: Positive for: Normal Exam, Soft. Negative for: Tenderness Extremity: Positive for: Normal ROM - Laboratory Results Result Diagrams: 06/12/16 11:09 06/12/16 11:09 - ECG O2 Sat by Pulse Oximetry: 93 (RA) Pulse Ox Interpretation: Normal Medical Decision Making Medical Decision Makin accuchek is 197. EKG, CXR, labs, duoneb, solumedrol ordered. Disposition - Clinical Impression Clinical Impression: Bronchitis, Exacerbation of asthma - Patient ED Disposition Is Patient to be Admitted: Yes - Disposition Disposition Time: 12:46 Condition: FAIR - Pt Status Changed To: Hospital Disposition Of: Observation - POA Present On Arrival: None Additional Comments - Additional Comments Additional Comments: Scribe Attestation: Documented by Malik Fritz acting as a scribe for Johan Camejo MD. Provider Scribe Attestation: All medical record entries made by the Scribe were at my direction and personally dictated by me. I have reviewed the chart and agree that the record accurately reflects my personal performance of the history, physical exam, medical decision making, and the department course for this patient. I have also personally directed, reviewed, and agree with the discharge instructions and disposition.
[2016-06-12] MEDS ORDERED: Albuterol-Ipratrop 3 mg / 0.5 (3 ml) UD IH STA ×2 (10:39→10:42)
[2016-06-12] MEDS ORDERED: Albuterol-Ipratrop 3 mg / 0.5 (3 ml) UD ONE (11:11)
[2016-06-12 11:27] LABS: BASO # 0.1 K/uL (0.0-0.2); BASO % 0.7 % (0.0-2.0); EOS # 0.3 K/uL (0.0-0.7); HEMATOCRIT 40.7 % (34.0-47.0); LYMPH # 1.7 K/uL (1.0-4.3); LYMPH % 19.8 % (20.0-40.0); MEAN CELL VOLUME 93.5 fl (81.0-99.0); MEAN CORPUSCULAR HEMOGLOBIN 31.3 pg (27.0-31.0); MEAN CORPUSCULAR HGB CONC 33.5 g/dL (33.0-37.0); MEAN PLATELET VOLUME 9.3 fl (7.2-11.7); MONO # 0.6 K/uL (0.0-0.8); MONO % 6.6 % (0.0-10.0); NEUT % 68.9 % (50.0-75.0); NRBC % 0.1 % (0.0-0.0); RED CELL DISTRIBUTION WIDTH 13.5 % (11.5-14.5); WHITE BLOOD COUNT 8.8 K/uL (4.8-10.8)
[2016-06-12 11:38] LABS: ALB/GLOB RATIO 1.1 (1.0-2.1); ALKALINE PHOSPHATASE 64 U/L (38-126); ALT/SGPT 34 U/L (9-52); AST/SGOT 28 U/L (14-36); BILIRUBIN,TOTAL 0.6 mg/dl (0.2-1.3); BLOOD UREA NITROGEN 15 mg/dl (7-17); CALCIUM 9.5 mg/dL (8.4-10.2); CARBON DIOXIDE 28 mmol/L (22-30); CHLORIDE 99 mmol/L (98-107); GFR AFRICAN-AMERICAN > 60; GLUCOSE,RANDOM 209 mg/dL (65-105); POTASSIUM 4.2 MMOL/L (3.6-5.0); SODIUM 140 mmol/l (132-148); TOTAL PROTEIN 7.7 G/DL (6.3-8.2)
--- NOTE | 2016-06-12 13:59 | RAD ---
HISTORY: Cough. Upright single-view 11:12. COMPARISON: 05/15/2016. FINDINGS: LUNGS: Chronic interstitial changes bilaterally, most prominent in the right upper lobe. PLEURA: No significant pleural effusion identified, no pneumothorax apparent. CARDIOVASCULAR: Normal. OSSEOUS STRUCTURES: No significant abnormalities. VISUALIZED UPPER ABDOMEN: Normal. OTHER FINDINGS: None. IMPRESSION: No significant interval change compared to the prior examination(s).
--- NOTE | 2016-06-12 16:08 | CARD ---
APPROVED REPORT EKG Measurement Heart [id number] <Conclusion> Sinus tachycardia with occasional premature ventricular complexes Nonspecific T wave abnormality Abnormal ECG
[2016-06-12] MEDS ORDERED: Albuterol HFA 90 mcg/actuation (8 g) IH PRN (18:00)
[2016-06-12] MEDS ORDERED: Ipratropium 0.02% Inhal Soln (0.5 mg/2.5 ml) UD IH PRN (18:00)
[2016-06-12] MEDS: Piperacillin/Tazobact 3.375 GM in Sodium Chloride 0.9% 100 ML IVPB SCH (21:40)
[2016-06-12] MEDS: Insulin Regular 100 units/ml SC SCH (22:21)
[2016-06-12] MEDS: methylPREDNISolone 80 MG in Sodium Chloride 0.9% 50 ML IVPB SCH (22:46)
[2016-06-13] MEDS: methylPREDNISolone 80 MG in Sodium Chloride 0.9% 50 ML IVPB SCH ×4 (05:11→21:47)
[2016-06-13 07:09] LABS: ALB/GLOB RATIO 1.1 (1.0-2.1); ALKALINE PHOSPHATASE 53 U/L (38-126); ALT/SGPT 31 U/L (9-52); AST/SGOT 21 U/L (14-36); BILIRUBIN,TOTAL 0.4 mg/dl (0.2-1.3); BLOOD UREA NITROGEN 20 mg/dl (7-17); CALCIUM 9.3 mg/dL (8.4-10.2); CARBON DIOXIDE 27 mmol/L (22-30); CHLORIDE 103 mmol/L (98-107); GFR AFRICAN-AMERICAN > 60; GLUCOSE,RANDOM 230 mg/dL (65-105); POTASSIUM 4.5 MMOL/L (3.6-5.0); SODIUM 142 mmol/l (132-148); TOTAL PROTEIN 6.6 G/DL (6.3-8.2)
[2016-06-13 07:11] LABS: HEMATOCRIT 38.6 % (34.0-47.0); MEAN CELL VOLUME 94.8 fl (81.0-99.0); MEAN CORPUSCULAR HGB CONC 32.6 g/dL (33.0-37.0); RED CELL DISTRIBUTION WIDTH 13.7 % (11.5-14.5); WHITE BLOOD COUNT 8.1 K/uL (4.8-10.8)
[2016-06-13] MEDS: Insulin Regular 100 units/ml SC SCH ×4 (07:36→21:44)
[2016-06-13] MEDS: GlipiZIDE 2.5 mg SR Tab PO SCH (08:24)
[2016-06-13] MEDS: Multivitamin With Minerals Tab PO SCH (08:24)
[2016-06-13] MEDS: Enoxaparin 40 mg Syringe SC SCH (08:26)
[2016-06-13] MEDS: Piperacillin/Tazobact 3.375 GM in Sodium Chloride 0.9% 100 ML IVPB SCH (08:30)
--- NOTE | 2016-06-13 08:50 | CP.PCM.HP ---
<Pebbles Castro - Last Filed: 06/13/16 16:13> History of Present Illness - History of Present Illness History of Present Illness: 89F admitted yesterday and seen at bedside this morning with attending. Pt PMHx significant for known ILD was brought in by her daughter for recurrent worsening shortness of breath not fully alleviated by nebulizer treatments associated with whitish sputum but no fevers/chills. Patient was admitted 1 month ago for similar symptoms and was discharged on on a Medrol pack. Present on Admission - Present on Admission Any Indicators Present on Admission: Yes History of Uncontrolled Diabetes: Yes Review of Systems - Review of Systems Review of Systems: As per HPI Past Patient History - Infectious Disease Hx of Infectious Diseases: None - Past Medical History & Family History Past Medical History?: Yes - Past Social History Smoking Status: Former Smoker - CARDIAC Hx Cardiac Disorders: Yes Hx Hypercholesterolemia: Yes Hx Hypertension: Yes - PULMONARY Hx Respiratory Disorders: Yes Hx Asthma: Yes - NEUROLOGICAL Hx Neurological Disorder: No - HEENT Hx HEENT Problems: No - RENAL Hx Chronic Kidney Disease: No - ENDOCRINE/METABOLIC Hx Endocrine Disorders: Yes Hx Diabetes Mellitus Type 2: Yes - HEMATOLOGICAL/ONCOLOGICAL Hx Blood Disorders: No - INTEGUMENTARY Hx Dermatological Problems: No - MUSCULOSKELETAL/RHEUMATOLOGICAL Hx Falls: No Hx Osteoporosis: Yes - GASTROINTESTINAL Hx Gastrointestinal Disorders: No - GENITOURINARY/GYNECOLOGICAL Hx Genitourinary Disorders: No - PSYCHIATRIC Hx Psychophysiologic Disorder: No Hx Substance Use: No - SURGICAL HISTORY Hx Carotid Endarterectomy: Yes Hx Cholecystectomy: Yes - ANESTHESIA Hx Anesthesia: Yes Hx Anesthesia Reactions: No Meds Allergies/Adverse Reactions: Allergies Allergy/AdvReac Type Severity Reaction Status Date / Time levofloxacin [From Levaquin] Allergy ITCHING Verified 06/15/16 15:01 Physical Exam - Constitutional Appears: Non-toxic, No Acute Distress - Head Exam Head Exam: ATRAUMATIC, NORMAL INSPECTION - Eye Exam Eye Exam: EOMI, Normal appearance - ENT Exam ENT Exam: Mucous Membranes Moist, Normal Exam - Respiratory Exam Respiratory Exam: Wheezes (b/l bases), NORMAL BREATHING PATTERN. absent: Rales , Respiratory Distress - Cardiovascular Exam Cardiovascular Exam: REGULAR RHYTHM. absent: JVD - GI/Abdominal Exam GI & Abdominal Exam: Normal Bowel Sounds, Soft. absent: Tenderness - Neurological Exam Neurological exam: Alert - Skin Skin Exam: Normal Color, Warm Results - Vital Signs Recent Vital Signs: Last Vital Signs Temp 36.4 C L 06/13/16 08:00 Pulse 85 06/13/16 08:25 Resp 20 06/13/16 08:00 BP 116/65 06/13/16 08:25 Pulse Ox 99 06/13/16 08:00 - Labs Result Diagrams: 06/13/16 05:25 06/13/16 05:25 Labs: Laboratory Results - last 24 hr 06/12/16 06/13/16 06/13/16 21:52 05:25 05:37 WBC 8.1 RBC 4.07 Hgb 12.6 Hct 38.6 MCV 94.8 MCH 31.0 MCHC 32.6 L RDW 13.7 Plt Count 232 Sodium 142 Potassium 4.5 Chloride 103 Carbon Dioxide 27 Anion Gap 16 BUN 20 H Creatinine 0.7 Est GFR ( Amer) > 60 Est GFR (Non-Af Amer) > 60 POC Glucose (mg/dL) 324 H 226 H Random Glucose 230 H Calcium 9.3 Total Bilirubin 0.4 AST 21 ALT 31 Alkaline Phosphatase 53 Total Protein 6.6 Albumin 3.4 L Globulin 3.2 Albumin/Globulin Ratio 1.1 Assessment & Plan (2) DVT prophylaxis Assessment and Plan: Lovenox 40mg, SC, Daily Status: Acute (3) HTN (hypertension) Assessment and Plan: Controlled, c/w home medications Status: Chronic (4) Diabetes Assessment and Plan: Poorly controlled at present likely secondary to steroid requirements. TDD: 6.6U (0.3/kg/day). - Levemir 3U, SC, HS - c/w PO medications - Accu-check - SSI - Hypoglycemic Bundle Status: Chronic (5) Dyspnea Assessment and Plan: CXR no acute findings and history of ILD, likely exacerbation of her ILD. It would seem that patient is poorly tolerating being off of steroids as she was just admitted last month and discharged on a Medrol pack and is now presenting with recurrent symptoms. May benefit from constant steroids for symptomatic relief, but the downside is uncontrolled glucose. - Pulmonary Consult (Dr Casas) appreciated - Steroids - Azithromycin 500mg, IV, daily - Sputum Cx Status: Acute <Weaver,Paulie K - Last Filed: 06/16/16 15:56> Results - Vital Signs Recent Vital Signs: Last Vital Signs Temp 98.1 F 06/15/16 13:01 Pulse 86 06/15/16 13:01 Resp 18 06/15/16 13:01 BP 135/80 06/15/16 13:01 Pulse Ox 100 06/15/16 13:01 - Labs Result Diagrams: 06/14/16 04:45 06/14/16 04:45 Labs: Laboratory Results - last 24 hr 06/15/16 17:02 POC Glucose (mg/dL) 173 H Assessment & Plan - Assessment and Plan (Free Text) Assessment: Patient was personally seen and examined by me in rounds with residents. Available labs and diagnostic data reviewed. Case, Patient's condition and management plan discussed with residents in rounds. Agree with resident's documentation. Plan: As ordered. Paulie Weaver MD
[2016-06-13] MEDS ORDERED: ALENDRONATE 10 MG TAB PO SCH (09:00)
[2016-06-13] MEDS ORDERED: Sodium Chloride 3% for Inhalation 4 ML VIAL.NEB IH PRN (09:03)
[2016-06-13 09:58] LABS: ABG ALLEN TEST YES; ARTERIAL BLOOD FLOW 3; ARTERIAL BLOOD GAS HCO3 25.9 mmol/L (21-28); ARTERIAL BLOOD GAS MODE MC; ARTERIAL BLOOD GAS O2 CAPACITY 18.1 mL/dL (16-24); ARTERIAL BLOOD GAS O2 CONTENT 17.3 ML/dL (15-23); ARTERIAL BLOOD GAS PH 7.37 (7.35-7.45); ARTERIAL BLOOD GAS PO2 109 mm/Hg (80-100); ARTERIAL BLOOD HGB O2 SAT 95.2 % (95.0-98.0); CARBOXYHEMOGLOBIN 0 % (0.5-1.5); HHB 4.4 % (0.0-5.0); METHEMOGLOBIN 0.4 % (0.0-3.0)
[2016-06-13] MEDS: Azithromycin 500 MG in Sodium Chloride 0.9% 250 ML IVPB SCH (11:51)
[2016-06-13] MEDS ORDERED: Dextrose 50% SYRINGE Inj (50 ml) IV PRN (16:03)
[2016-06-13] MEDS ORDERED: Glucagon Recombinant 1 mg Inj IM PRN (16:03)
[2016-06-13] MEDS: guaiFENesin DM 200 mg-20 mg/10 ml UD PO SCH (17:29)
[2016-06-13] MEDS: Albuterol-Ipratrop 3 mg / 0.5 (3 ml) UD INH SCH (19:38)
[2016-06-13] MEDS ORDERED: Insulin Detemir 100 Units/ml Inj SC SCH (22:00)
[2016-06-14] MEDS: Albuterol-Ipratrop 3 mg / 0.5 (3 ml) UD INH SCH ×4 (02:39→19:04)
[2016-06-14] MEDS: methylPREDNISolone 80 MG in Sodium Chloride 0.9% 50 ML IVPB SCH ×4 (04:26→21:27)
[2016-06-14] MEDS: Insulin Regular 100 units/ml SC SCH ×4 (06:30→21:47)
[2016-06-14 06:48] LABS: BASO % 0.1 % (0.0-2.0); HEMATOCRIT 35.1 % (34.0-47.0); LYMPH # 0.9 K/uL (1.0-4.3); LYMPH % 6.6 % (20.0-40.0); MEAN CELL VOLUME 93.5 fl (81.0-99.0); MEAN CORPUSCULAR HEMOGLOBIN 30.9 pg (27.0-31.0); MEAN PLATELET VOLUME 9.6 fl (7.2-11.7); MONO # 0.4 K/uL (0.0-0.8); MONO % 3.1 % (0.0-10.0); NEUT # 11.6 K/uL (1.8-7.0); NEUT % 90.2 % (50.0-75.0); PLATELET COUNT 224 K/uL (130-400); RED CELL DISTRIBUTION WIDTH 13.4 % (11.5-14.5); WHITE BLOOD COUNT 12.9 K/uL (4.8-10.8)
[2016-06-14 07:00] LABS: BLOOD UREA NITROGEN 20 mg/dl (7-17); CALCIUM 8.9 mg/dL (8.4-10.2); CARBON DIOXIDE 26 mmol/L (22-30); CHLORIDE 104 mmol/L (98-107); GFR AFRICAN-AMERICAN > 60; GLUCOSE,RANDOM 232 mg/dL (65-105); POTASSIUM 4.2 MMOL/L (3.6-5.0); SODIUM 140 mmol/l (132-148)
--- NOTE | 2016-06-14 07:01 | CON ---
DATE: 06/13/2016 The patient is an 89-year-old female who was referred for pulmonary evaluation because of shortness o f breath, exercise intolerance, cough productive of white sputum for the past several days prior to p resentation. She had received bronchodilators which helped a little, but symptoms, however, worsened . She follows up with Dr. Muñoz out of [facility]. PAST MEDICAL HISTORY: Remarkable for asthma, diabetes mellitus, hypertension, hyperlipidemia, osteop orosis and interstitial lung disease (pulmonary fibrosis). FAMILY HISTORY: Noncontributory. SOCIAL HISTORY: She does not smoke or drink. Lives at home with family. REVIEW OF SYSTEMS: Essentially remarkable for shortness of breath. PHYSICAL EXAMINATION: GENERAL: The patient is alert and oriented, appears to have moderate dyspnea at rest and on mild exe rtion. MEDICATIONS: Include albuterol/alendronate, Cymbalta, Amaryl, Zestril, Glucophage, Singulair, Januvi a, Norvasc, Tessalon Perles and Medrol Dosepak. PHYSICAL EXAMINATION: GENERAL: She is frail looking, short of breath on mild exertion. VITAL SIGNS: Blood pressure 116/65, pulse of 85, respiratory rate 20. She is afebrile. O2 sat 99% on nasal cannula oxygen. SKIN: Shows fair turgor. HEENT: Pupils equal, reactive to light and accommodation. Mouth shows fair hygiene. NECK: JVP flat. LUNGS: Poor aeration with Velcro rales bilaterally. HEART: S1, S2. ABDOMEN: Soft, nontender, no organomegaly. EXTREMITIES: Show clubbing of all fingers. No edema or cyanosis. CENTRAL NERVOUS SYSTEM: The patient has an unsteady gait and walks with assistance. LABORATORY DATA: Remarkable for WBC of 8.1, hemoglobin 12.6, platelet count of 232,000. Sodium 142, potassium 4.5, BUN of 20, creatinine 0.7, serum glucose 226. ABG is pending. Chest x-ray is remarkable for a clinical picture that is compatible with chronic interstitial lung di sease bilaterally, most prominent in the right upper lobe, unchanged when compared to x-ray of 2016. EKG is remarkable for sinus tachycardia with occasional premature ventricular complexes, nonsp ecific ST-T changes. IMPRESSION: Acute exacerbation of interstitial lung disease, probably secondary to upper respiratory tract infection; diabetes mellitus with hyperglycemia, type 2; history of asthma. PLAN: Continue IV steroids, aerosolized bronchodilators. Obtain sputum for Gram stain and cultures. Oxygen therapy. Obtain baseline ABG. Will continue to follow with you. Jez Casas MD cc: [id number] TT: 06/13/2016 09:23:26 Confirmation # [id number] Dictation # [id number] mn
--- NOTE | 2016-06-14 09:35 | CP.PCM.PN ---
Subjective - Date & Time of Evaluation Date of Evaluation: 06/14/16 Time of Evaluation: 09:36 - Subjective Subjective: STILL DYSPNEIC ONM MILD EXERTION COUGHING WITH AUDIBLE WHEEZING Objective - Vital Signs/Intake and Output Vital Signs (last 24 hours): Temp Pulse Resp BP Pulse Ox 97.7 F 93 H 18 116/68 100 06/14/16 08:27 06/14/16 08:27 06/14/16 08:27 06/14/16 08:27 06/14/16 08:27 - Medications Medications: Current Medications Acetaminophen (Tylenol 325mg Tab) 650 mg PO Q4 PRN PRN Reason: Fever >100.4 F Albuterol/Ipratropium (Duoneb 3 Mg/0.5 Mg (3 Ml) Ud) 3 ml INH RQ6 [facility] Last Admin: 06/14/16 07:53 Dose: 3 ml Alendronate Sodium (Fosamax) 5 mg PO DAILY [facility] Last Admin: 06/13/16 08:24 Dose: 5 mg Amlodipine Besylate (Norvasc) 5 mg PO QPM [facility] Last Admin: 06/13/16 17:06 Dose: 5 mg Atorvastatin Calcium (Lipitor) 10 mg PO DAILY [facility] Last Admin: 06/13/16 08:29 Dose: 10 mg Dextrose (Glutose 15) 0 gm PO ONCE PRN; Protocol PRN Reason: Hypoglycemia Protocol Dextrose (Dextrose 50% Inj) 0 ml IV STAT PRN; Protocol PRN Reason: Hyglycemia Protocol Duloxetine HCl (Cymbalta) 60 mg PO DAILY [facility] Last Admin: 06/13/16 08:24 Dose: 60 mg Enoxaparin Sodium (Lovenox) 40 mg SC DAILY [facility] PRN Reason: Protocol Last Admin: 06/13/16 08:26 Dose: 40 mg Glipizide (Glucotrol Xl) 2.5 mg PO DAILY [facility] Last Admin: 06/13/16 08:24 Dose: 2.5 mg Glucagon (Glucagen Diagnostic Kit) 0 mg IM STAT PRN; Protocol PRN Reason: Hypoglycemia Protocol Guaifenesin/Dextromethorphan (Robitussin Dm) 10 ml PO TID [facility] Last Admin: 06/13/16 17:29 Dose: 10 ml Methylprednisolone 80 mg/ (Sodium Chloride) 51.28 mls @ 100 mls/hr IVPB Q6 [facility] Last Admin: 06/14/16 04:26 Dose: 100 mls/hr Azithromycin 500 mg/ Sodium (Chloride) 250 mls @ 250 mls/hr IVPB DAILY [facility] Last Admin: 06/13/16 11:51 Dose: 250 mls/hr Insulin Detemir (Levemir) 3 units SC [facility] Last Admin: 06/13/16 22:42 Dose: 3 units Insulin Human Regular (Humulin R) 0 units SC [facility] PRN Reason: Protocol Last Admin: 06/14/16 06:30 Dose: 3 unit Lisinopril (Zestril) 10 mg PO DAILY [facility] Last Admin: 06/13/16 08:25 Dose: 10 mg Memantine (Namenda) 10 mg PO DAILY [facility] Last Admin: 06/13/16 08:51 Dose: 10 mg Metformin HCl (Glucophage) 1,000 mg PO BID [facility] Last Admin: 06/13/16 16:27 Dose: 1,000 mg Multivitamins/Minerals (Therapeutic-M Tab) 1 tab PO DAILY [facility] Last Admin: 06/13/16 08:24 Dose: 1 tab Sitagliptin Phosphate (Januvia) 100 mg PO QPM [facility] Last Admin: 06/13/16 17:05 Dose: 100 mg - Labs Labs: 06/14/16 04:45 06/14/16 04:45 - Constitutional Appears: Chronically Ill - Head Exam Head Exam: ATRAUMATIC, NORMAL INSPECTION, NORMOCEPHALIC - Eye Exam Eye Exam: EOMI, Normal appearance, PERRL Pupil Exam: NORMAL ACCOMODATION, PERRL - ENT Exam ENT Exam: Mucous Membranes Moist, Normal Exam - Neck Exam Neck Exam: Full ROM, Normal Inspection. absent: Lymphadenopathy - Respiratory Exam Respiratory Exam: Decreased Breath Sounds, Prolonged Expiratory Phase, Rales, Wheezes, NORMAL BREATHING PATTERN - Cardiovascular Exam Cardiovascular Exam: REGULAR RHYTHM, +S1, +S2. absent: Murmur - GI/Abdominal Exam GI & Abdominal Exam: Soft, Normal Bowel Sounds. absent: Tenderness - Rectal Exam Rectal Exam: NORMAL INSPECTION - Extremities Exam Extremities Exam: Full ROM, Normal Capillary Refill, Normal Inspection. absent : Joint Swelling, Pedal Edema - Back Exam Back Exam: NORMAL INSPECTION - Neurological Exam Neurological Exam: Alert, Awake, CN II-XII Intact, Normal Gait, Oriented x3 - Psychiatric Exam Psychiatric exam: Normal Affect, Normal Mood - Skin Skin Exam: Dry, Intact, Normal Color, Warm Assessment and Plan - Assessment and Plan (Free Text) Assessment: ACUTE EXAC OF INTERSTITIAL LUNG DZ URI Plan: CONTINUE IV ANTIBIOTICS AND STEROIDS WILL BENEFIT FROM SUBACUTE CARE WILL NEED ORAL HIGH DOSE STEROIDS X 1 MONTH OUT PT
[2016-06-14] MEDS: GlipiZIDE 2.5 mg SR Tab PO SCH (09:43)
[2016-06-14] MEDS: Multivitamin With Minerals Tab PO SCH (09:44)
[2016-06-14] MEDS: Enoxaparin 40 mg Syringe SC SCH (09:44)
[2016-06-14] MEDS: guaiFENesin DM 200 mg-20 mg/10 ml UD PO SCH ×3 (09:44→17:07)
[2016-06-14] MEDS: Azithromycin 500 MG in Sodium Chloride 0.9% 250 ML IVPB SCH (09:47)
--- NOTE | 2016-06-14 10:23 | CP.PCM.PN ---
<Pebbles Castro - Last Filed: 06/14/16 15:05> Subjective - Date & Time of Evaluation Date of Evaluation: 06/14/16 Time of Evaluation: 07:00 - Subjective Subjective: 89F seen and examined at bedside with attending. Pt doesn't say much but still c/o of SOB but denies chest pain and says she is eating well. Objective - Vital Signs/Intake and Output Vital Signs (last 24 hours): Temp Pulse Resp BP Pulse Ox 36.5 C 93 H 18 118/68 100 06/14/16 08:27 06/14/16 09:44 06/14/16 08:27 06/14/16 09:44 06/14/16 08:27 - Medications Medications: Current Medications Acetaminophen (Tylenol 325mg Tab) 650 mg PO Q4 PRN PRN Reason: Fever >100.4 F Albuterol/Ipratropium (Duoneb 3 Mg/0.5 Mg (3 Ml) Ud) 3 ml INH RQ6 [facility] Last Admin: 06/14/16 07:53 Dose: 3 ml Alendronate Sodium (Fosamax) 5 mg PO DAILY [facility] Last Admin: 06/13/16 08:24 Dose: 5 mg Amlodipine Besylate (Norvasc) 5 mg PO QPM [facility] Last Admin: 06/13/16 17:06 Dose: 5 mg Atorvastatin Calcium (Lipitor) 10 mg PO DAILY [facility] Last Admin: 06/14/16 09:44 Dose: 10 mg Dextrose (Glutose 15) 0 gm PO ONCE PRN; Protocol PRN Reason: Hypoglycemia Protocol Dextrose (Dextrose 50% Inj) 0 ml IV STAT PRN; Protocol PRN Reason: Hyglycemia Protocol Duloxetine HCl (Cymbalta) 60 mg PO DAILY [facility] Last Admin: 06/14/16 09:43 Dose: 60 mg Enoxaparin Sodium (Lovenox) 40 mg SC DAILY [facility] PRN Reason: Protocol Last Admin: 06/14/16 09:44 Dose: 40 mg Glipizide (Glucotrol Xl) 2.5 mg PO DAILY [facility] Last Admin: 06/14/16 09:43 Dose: 2.5 mg Glucagon (Glucagen Diagnostic Kit) 0 mg IM STAT PRN; Protocol PRN Reason: Hypoglycemia Protocol Guaifenesin/Dextromethorphan (Robitussin Dm) 10 ml PO TID [facility] Last Admin: 06/14/16 09:44 Dose: 10 ml Methylprednisolone 80 mg/ (Sodium Chloride) 51.28 mls @ 100 mls/hr IVPB Q6 [facility] Last Admin: 06/14/16 04:26 Dose: 100 mls/hr Azithromycin 500 mg/ Sodium (Chloride) 250 mls @ 250 mls/hr IVPB DAILY [facility] Last Admin: 06/14/16 09:47 Dose: 250 mls/hr Insulin Detemir (Levemir) 3 units SC HS [facility] Last Admin: 06/13/16 22:42 Dose: 3 units Insulin Human Regular (Humulin R) 0 units SC ACHS [facility] PRN Reason: Protocol Last Admin: 06/14/16 06:30 Dose: 3 unit Lisinopril (Zestril) 10 mg PO DAILY [facility] Last Admin: 06/14/16 09:44 Dose: 10 mg Memantine (Namenda) 10 mg PO DAILY [facility] Last Admin: 06/14/16 09:44 Dose: 10 mg Metformin HCl (Glucophage) 1,000 mg PO BID [facility] Last Admin: 06/14/16 09:43 Dose: 1,000 mg Multivitamins/Minerals (Therapeutic-M Tab) 1 tab PO DAILY [facility] Last Admin: 06/14/16 09:44 Dose: 1 tab Sitagliptin Phosphate (Januvia) 100 mg PO QPM [facility] Last Admin: 06/13/16 17:05 Dose: 100 mg - Labs Labs: 06/14/16 04:45 06/14/16 04:45 - Constitutional Appears: Well, Non-toxic, No Acute Distress - Head Exam Head Exam: ATRAUMATIC, NORMAL INSPECTION - Eye Exam Eye Exam: EOMI, Normal appearance - ENT Exam ENT Exam: Mucous Membranes Moist, Normal Exam - Neck Exam Neck Exam: Full ROM, Normal Inspection - Respiratory Exam Respiratory Exam: Rales, Wheezes, NORMAL BREATHING PATTERN - Cardiovascular Exam Cardiovascular Exam: REGULAR RHYTHM. absent: JVD - GI/Abdominal Exam GI & Abdominal Exam: Soft, Normal Bowel Sounds. absent: Tenderness - Extremities Exam Extremities Exam: Normal Capillary Refill, Normal Inspection. absent: Pedal Edema - Neurological Exam Neurological Exam: Alert, Awake - Psychiatric Exam Psychiatric exam: Normal Affect, Normal Mood - Skin Skin Exam: Normal Color, Warm Assessment and Plan (1) Interstitial lung disease Assessment & Plan: Acute exacerbation with some mild clinical improvement. - Pulmonary Consult (Dr Casas) appreciated: High dose PO steroids for 1 month as outpatient, rec subacute - Pulmicort, INH, BID - c/w IV Steroids which is causing a predictable leukocytosis with left shift - Azithromycin 500mg, IV, daily - Sputum Cx: PENDING - Incentive Spirometry Q2H, 10x Status: Acute (2) DVT prophylaxis Assessment & Plan: Lovenox 40mg, SC, Daily Status: Acute (3) HTN (hypertension) Assessment & Plan: Controlled, c/w home medications Status: Chronic (4) Diabetes Assessment & Plan: Still somewhat elevated currently due to steroid requirement. Increasing long acting to 6U from 3U [TDD: 6.6U (0.3/kg/day)]. - Levemir 6U, SC, HS - c/w PO medications - Accu-check - SSI - Hypoglycemic Bundle Status: Chronic - Assessment and Plan (Free Text) Plan: Dispo: TCU 06/15/2016 if medically stable <Paulie Weaver - Last Filed: 06/16/16 15:58> Objective - Vital Signs/Intake and Output Vital Signs (last 24 hours): Temp Pulse Resp BP Pulse Ox 98.1 F 86 18 135/80 100 06/15/16 13:01 06/15/16 13:01 06/15/16 13:01 06/15/16 13:01 06/15/16 13:01 - Labs Labs: 06/14/16 04:45 06/14/16 04:45 Assessment and Plan - Assessment and Plan (Free Text) Assessment: Patient was personally seen and examined by me in rounds with residents. Available labs and diagnostic data reviewed. Case, Patient's condition and management plan discussed with residents in rounds. Agree with resident's documentation. Plan: As ordered. Paulie Weaver MD
[2016-06-14 12:07] LABS: NEUTROPHIL 87 % (42-75); REACTIVE LYMPHOCYTES 2 % (0-0); TOTAL CELLS COUNTED 100
[2016-06-14] MEDS ORDERED: Budesonide 0.5 mg/2 ml Inhal Susp UD IH SCH (20:00)
[2016-06-14] MEDS ORDERED: Insulin Detemir 100 Units/ml Inj SC SCH (22:00)
[2016-06-15] MEDS: Albuterol-Ipratrop 3 mg / 0.5 (3 ml) UD INH SCH ×3 (01:06→13:09)
[2016-06-15] MEDS: methylPREDNISolone 80 MG in Sodium Chloride 0.9% 50 ML IVPB SCH ×2 (03:29→09:59)
[2016-06-15] MEDS: Insulin Regular 100 units/ml SC SCH ×2 (06:41→12:03)
[2016-06-15] MEDS ORDERED: GlipiZIDE 5 mg SR Tab PO SCH (07:15)
[2016-06-15 08:06] VITALS: RESP 18; O2SAT 100
--- NOTE | 2016-06-15 08:11 | PN ---
DATE: 06/15/2016 The patient seen and examined. Interim events noted. Consults noted, appreciated. Pulmonary follow up and intervention noted and appreciated. The patient remains in progressive care unit on telemetry monitoring. The patient feels okay. No specific complaint. No chest pain, no shortness of breath. seem to be improving. PHYSICAL EXAMINATION: GENERAL: The patient is in no acute distress. VITAL SIGNS: Stable. HEART: S1, S2 normal, regular. LUNGS: Good bilateral air exchange. ABDOMEN: Soft, nontender. EXTREMITIES: No edema, no calf swelling, no tenderness, no acute ischemia. CENTRAL NERVOUS SYSTEM: Essentially unchanged. DIAGNOSTIC DATA: Available reviewed. Telemetry monitoring does not reveal significant arrhythmias. Overall, patient's general medical condition is stable and improving. PLAN: As ordered. Paulie Weaver MD cc: [id number] TT: 06/15/2016 08:10:26 Confirmation # [id number] Dictation # [id number]
--- NOTE | 2016-06-15 09:15 | CP.PCM.PN ---
Subjective - Date & Time of Evaluation Date of Evaluation: 06/15/16 Time of Evaluation: 09:18 - Subjective Subjective: SOB IMPROVING Objective - Vital Signs/Intake and Output Vital Signs (last 24 hours): Temp Pulse Resp BP Pulse Ox 98.0 F 78 18 129/74 100 06/15/16 08:05 06/15/16 08:05 06/15/16 08:05 06/15/16 08:05 06/15/16 08:05 - Medications Medications: Current Medications Acetaminophen (Tylenol 325mg Tab) 650 mg PO Q4 PRN PRN Reason: Fever >100.4 F Albuterol/Ipratropium (Duoneb 3 Mg/0.5 Mg (3 Ml) Ud) 3 ml INH RQ6 [facility] Last Admin: 06/15/16 07:32 Dose: 3 ml Alendronate Sodium (Fosamax) 5 mg PO DAILY [facility] Last Admin: 06/13/16 08:24 Dose: 5 mg Amlodipine Besylate (Norvasc) 5 mg PO QPM [facility] Last Admin: 06/14/16 17:07 Dose: 5 mg Atorvastatin Calcium (Lipitor) 10 mg PO DAILY [facility] Last Admin: 06/14/16 09:44 Dose: 10 mg Budesonide (Pulmicort Respules) 0.5 mg IH RBID [facility] Last Admin: 06/15/16 07:33 Dose: 0.5 mg Dextrose (Glutose 15) 0 gm PO ONCE PRN; Protocol PRN Reason: Hypoglycemia Protocol Dextrose (Dextrose 50% Inj) 0 ml IV STAT PRN; Protocol PRN Reason: Hyglycemia Protocol Duloxetine HCl (Cymbalta) 60 mg PO DAILY [facility] Last Admin: 06/14/16 09:43 Dose: 60 mg Enoxaparin Sodium (Lovenox) 40 mg SC DAILY [facility] PRN Reason: Protocol Last Admin: 06/14/16 09:44 Dose: 40 mg Glipizide (Glucotrol Xl) 5 mg PO DAILY [facility] Glucagon (Glucagen Diagnostic Kit) 0 mg IM STAT PRN; Protocol PRN Reason: Hypoglycemia Protocol Guaifenesin/Dextromethorphan (Robitussin Dm) 10 ml PO TID [facility] Last Admin: 06/14/16 17:07 Dose: 10 ml Methylprednisolone 80 mg/ (Sodium Chloride) 51.28 mls @ 100 mls/hr IVPB Q6 [facility] Last Admin: 06/15/16 03:29 Dose: 100 mls/hr Azithromycin 500 mg/ Sodium (Chloride) 250 mls @ 250 mls/hr IVPB DAILY [facility] Last Admin: 06/14/16 09:47 Dose: 250 mls/hr Insulin Detemir (Levemir) 6 units SC HS [facility] Last Admin: 06/14/16 21:48 Dose: 6 units Insulin Human Regular (Humulin R) 0 units SC ACHS [facility] PRN Reason: Protocol Last Admin: 06/15/16 06:41 Dose: 3 unit Lisinopril (Zestril) 10 mg PO DAILY [facility] Last Admin: 06/14/16 09:44 Dose: 10 mg Memantine (Namenda) 10 mg PO DAILY [facility] Metformin HCl (Glucophage) 1,000 mg PO BID [facility] Last Admin: 06/14/16 17:06 Dose: 1,000 mg Multivitamins/Minerals (Therapeutic-M Tab) 1 tab PO DAILY [facility] Last Admin: 06/14/16 09:44 Dose: 1 tab Sitagliptin Phosphate (Januvia) 100 mg PO QPM [facility] Last Admin: 06/14/16 17:07 Dose: 100 mg - Labs Labs: 06/14/16 04:45 06/14/16 04:45 - Constitutional Appears: No Acute Distress - Head Exam Head Exam: ATRAUMATIC, NORMAL INSPECTION, NORMOCEPHALIC - Eye Exam Eye Exam: EOMI, Normal appearance, PERRL Pupil Exam: NORMAL ACCOMODATION, PERRL - ENT Exam ENT Exam: Mucous Membranes Moist, Normal Exam - Neck Exam Neck Exam: Full ROM, Normal Inspection. absent: Lymphadenopathy - Respiratory Exam Respiratory Exam: Prolonged Expiratory Phase, Rales, NORMAL BREATHING PATTERN - Cardiovascular Exam Cardiovascular Exam: REGULAR RHYTHM, +S1, +S2. absent: Murmur - GI/Abdominal Exam GI & Abdominal Exam: Soft, Normal Bowel Sounds. absent: Tenderness - Rectal Exam Rectal Exam: NORMAL INSPECTION - Extremities Exam Extremities Exam: Full ROM, Normal Capillary Refill, Normal Inspection. absent : Joint Swelling, Pedal Edema - Back Exam Back Exam: NORMAL INSPECTION - Neurological Exam Neurological Exam: Alert, Awake, CN II-XII Intact, Normal Gait, Oriented x3 - Psychiatric Exam Psychiatric exam: Normal Affect, Normal Mood - Skin Skin Exam: Dry, Intact, Normal Color, Warm Assessment and Plan - Assessment and Plan (Free Text) Assessment: INTERSTITIAL LUNG DZ Plan: CONSIDER SUBACUTE CARE/TCU
[2016-06-15] MEDS: Multivitamin With Minerals Tab PO SCH (09:54)
[2016-06-15] MEDS: Enoxaparin 40 mg Syringe SC SCH (09:58)
[2016-06-15] MEDS: Azithromycin 500 MG in Sodium Chloride 0.9% 250 ML IVPB SCH (09:59)
[2016-06-15] MEDS: guaiFENesin DM 200 mg-20 mg/10 ml UD PO SCH ×2 (09:59→12:39)
[2016-06-15 13:02] VITALS: BP 135/80; PULSE 86; TEMP 98.1
== END 2016-06-15 14:30 | DRG 197 ==
LOC: H.ER 10:09 → OBSVTOIN 12:44 → H.ERHOLD 12:44 → H.TEL 17:35
PROVIDERS: ADMIT Internal Medicine; ATTEND Internal Medicine
PROC: 3E0F7GC Introduction of Other Therapeutic Substance into Respiratory Tract, Via Natural or Artificial Opening (ICD-10-PCS; principal; 2016-06-13)
DX: J84.10 Pulmonary fibrosis, unspecified (principal); J45.901 Unspecified asthma with (acute) exacerbation; E11.65 Type 2 diabetes mellitus with hyperglycemia; I10 Essential (primary) hypertension; M81.0 Age-related osteoporosis without current pathological fracture; Z90.49 Acquired absence of other specified parts of digestive tract; E78.00 Pure hypercholesterolemia, unspecified; Z87.891 Personal history of nicotine dependence; T38.0X5A Adverse effect of glucocorticoids and synthetic analogues, initial encounter; E78.5 Hyperlipidemia, unspecified; J06.9 Acute upper respiratory infection, unspecified

== ENCOUNTER 2016-06-15 10:48 | Inpatient (IN) | payer OTHER, MEDICAID ==
[2016-06-15 15:44] VITALS: BMI 22.3
[2016-06-15] MEDS ORDERED: MethylPREDNISolone 40 mg Vial IV SCH (16:00)
[2016-06-15] MEDS ORDERED: Dextrose 50% SYRINGE Inj (50 ml) IV PRN (16:23)
[2016-06-15] MEDS ORDERED: Glucagon Recombinant 1 mg Inj IM PRN (16:23)
[2016-06-15] MEDS: Insulin Regular 100 units/ml SC SCH ×2 (18:09→21:45)
[2016-06-15] MEDS: guaiFENesin DM 200 mg-20 mg/10 ml UD PO SCH (18:11)
[2016-06-15] MEDS: methylPREDNISolone 80 MG in Sodium Chloride 0.9% 50 ML IV SCH ×2 (18:40→23:53)
[2016-06-15] MEDS: Budesonide 0.5 mg/2 ml Inhal Susp UD INH SCH (19:53)
[2016-06-15] MEDS: Albuterol-Ipratrop 3 mg / 0.5 (3 ml) UD IH SCH (19:54)
[2016-06-15] MEDS: Insulin Detemir 100 Units/ml Inj SC SCH (21:49)
[2016-06-16] MEDS: Albuterol-Ipratrop 3 mg / 0.5 (3 ml) UD IH SCH ×5 (01:30→19:53)
[2016-06-16] MEDS: Azithromycin 500 MG in Sodium Chloride 0.9% 250 ML IVPB SCH (05:33)
[2016-06-16] MEDS: Insulin Regular 100 units/ml SC SCH ×3 (06:53→17:15)
[2016-06-16] MEDS: methylPREDNISolone 80 MG in Sodium Chloride 0.9% 50 ML IV SCH ×3 (07:24→19:12)
[2016-06-16] MEDS: Budesonide 0.5 mg/2 ml Inhal Susp UD INH SCH ×2 (07:27→19:53)
[2016-06-16] MEDS: Multivitamin With Minerals Tab PO SCH (08:37)
[2016-06-16] MEDS: GlipiZIDE 5 mg SR Tab PO SCH (08:37)
[2016-06-16] MEDS: guaiFENesin DM 200 mg-20 mg/10 ml UD PO SCH ×3 (08:37→17:15)
[2016-06-16] MEDS: Enoxaparin 40 mg Syringe SC SCH (08:38)
[2016-06-16] MEDS ORDERED: ALENDRONATE 10 MG TAB PO SCH (09:00)
[2016-06-16] MEDS ORDERED: Patient's Own Med (Multivitamin [Multi-Vitamin Daily] 1 TAB) PO SCH (09:00)
--- NOTE | 2016-06-16 09:59 | HP ---
CHIEF COMPLAINT: Shortness of breath. HISTORY OF PRESENT ILLNESS: This is an 89-year-old female, known case of interstitial lung disease, who was admitted to medical floor for exacerbation of interstitial lung disease and shortness of sherri th, who was treated accordingly and was seen by pulmonary business system consultant, and after stabilization the kelly johns was transferred to transitional care unit for further optimization of treatment. At present, the patient is sleeping, arousable, feels generalized weakness, but no chest pain, no jose maria rtness of breath at rest. REVIEW OF SYSTEMS: Negative for headache, dizziness, syncope, loss of consciousness, chest pain, agustín sea, vomiting, diarrhea, constipation, any new joint or extremity pain. Review of systems of all oth er organ system is unremarkable. Review of systems is only positive for exertional shortness of sherri th. PAST MEDICAL HISTORY: Significant for interstitial lung disease. PERSONAL HISTORY: The patient is currently a nonsmoker, nondrinker. No substance abuse. MEDICATIONS: The patient is on multiple medications, which is as per reconciliation sheet, which was reviewed in order. FAMILY HISTORY: Noncontributory. PHYSICAL EXAMINATION: A well-built, well-nourished, elderly female in no acute distress. VITAL SIGNS: Temperature afebrile, pulse 77, respirations 16, blood pressure 136/76. HEENT EXAMINATION: Pupils reacting to light. No JVD, no thyromegaly, no lymphadenopathy, no nystagmus. Normocephalic, atraumatic skull. HEART EXAMINATION: S1, S2 normal, regular. No significant murmur, gallop, or rub is heard. LUNG EXAMINATION: Shows bilateral good air exchange. Chronic crepitations. No wheezing, no r ales. ABDOMEN: Soft, nontender, no organomegaly, no fluid. Bowel sounds are plus. EXTREMITY EXAMINATION: No edema, no calf swelling, no tenderness. No acute ischemia. CENTRAL NERVOUS SYSTEM EXAMINATION: Essentially unchanged, and there is no sign of any acute gross f ocal, motor, or sensory neurological deficit. DIAGNOSTIC DATA: Available diagnostic data reviewed. ADMITTING IMPRESSION: Acute exacerbation of interstitial lung disease. PLAN: As ordered. Case and plan discussed with the patient. Paulie Weaver MD cc: [id number] TT: 06/16/2016 09:58:58 jn
--- NOTE | 2016-06-16 14:57 | CP.PCM.CON ---
History of Present Illness - History of Present Illness History of Present Illness: psychiatry consult reason: depression ordered by dr. gupta cc: "i can't sleep now" hpi: pt has no previous history of psychiatric treatment. she is on cymbalta as prescribed by her primary care doctor. she lost 2 children two years ago and feels sad since then. she has low energy, feels hopeless, has times when she does not enjoy anything. she has poor appetite. she is not sleeping at night because she is sad and thinking about her losses. she states she would like to see a psychiatrist/therapist. she does report times when she feels suicidal and has thoughts to jump off the bridge. she has not taken efforts to act on her thoughts. she does not feel like hurting herself in the hospital. there are no psychotic symptoms. pt reports cymbalta has helped her symptoms. she has some c/ o nausea. past psych: denies any personal or family history of mental illness social: born [place], is a [employer]. 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 substance use: denies history of alcohol, tobacco or use of other illicit substances medical: as per dr. gupta's history/physical mse: alert, oriented x 3. mood is depressed. affect is constricted. pt is reporting thoughts of suicide, denies any current plan or intent. pt's speech is appropriate rate/tone and volume. pt denies a/v hallucinations. no delusional thinking endorsed. fair i/j. memory is grossly intact. assessment: major depression, single episode moderate recommendation add remeron to help augment cymbalta and help with insomnia t/c changing cymbalta as it is only partially effective and pt with nausea pt should be referred to outpatient psychiatry and therapy after she is discharged if pt has suicidal thoughts/feels unsafe can offer inpt psychiatric admission- discussed this option with pt who is contemplating this option. Past Patient History - Infectious Disease Hx of Infectious Diseases: None - Past Medical History & Family History Past Medical History?: Yes - Past Social History Smoking Status: Former Smoker - CARDIAC Hx Cardiac Disorders: Yes Hx Hypercholesterolemia: Yes Hx Hypertension: Yes - PULMONARY Hx Respiratory Disorders: Yes Hx Asthma: Yes - NEUROLOGICAL Hx Neurological Disorder: No - HEENT Hx HEENT Problems: No - RENAL Hx Chronic Kidney Disease: No - ENDOCRINE/METABOLIC Hx Endocrine Disorders: Yes Hx Diabetes Mellitus Type 2: Yes - HEMATOLOGICAL/ONCOLOGICAL Hx AIDS: No Hx Human Immunodeficiency Virus (HIV): No - INTEGUMENTARY Hx Dermatological Problems: No - MUSCULOSKELETAL/RHEUMATOLOGICAL Hx Falls: No - GASTROINTESTINAL Hx Gastrointestinal Disorders: No - GENITOURINARY/GYNECOLOGICAL Hx Genitourinary Disorders: No - PSYCHIATRIC Hx Substance Use: No - SURGICAL HISTORY Hx Carotid Endarterectomy: Yes Hx Cholecystectomy: Yes - ANESTHESIA Hx Anesthesia: Yes Hx Anesthesia Reactions: No Meds Allergies/Adverse Reactions: Allergies Allergy/AdvReac Type Severity Reaction Status Date / Time levofloxacin [From Levaquin] Allergy ITCHING Verified 06/15/16 15:01 - Medications Medications: Current Medications Acetaminophen (Tylenol 325mg Tab) 650 mg PO Q4 PRN PRN Reason: Fever >100.4 F Albuterol/Ipratropium (Duoneb 3 Mg/0.5 Mg (3 Ml) Ud) 3 ml IH RQ6 [facility] Last Admin: 06/16/16 14:03 Dose: 3 ml Amlodipine Besylate (Norvasc) 5 mg PO QPM [facility] Last Admin: 06/15/16 18:10 Dose: 5 mg Atorvastatin Calcium (Lipitor) 10 mg PO DAILY [facility] Last Admin: 06/16/16 08:37 Dose: 10 mg Budesonide (Pulmicort Respules) 0.5 mg INH RBID [facility] Last Admin: 06/16/16 07:27 Dose: 0.5 mg Dextrose (Glutose 15) 0 gm PO ONCE PRN; Protocol PRN Reason: Hypoglycemia Protocol Dextrose (Dextrose 50% Inj) 0 ml IV STAT PRN; Protocol PRN Reason: Hyglycemia Protocol Duloxetine HCl (Cymbalta) 60 mg PO DAILY [facility] Last Admin: 06/16/16 08:37 Dose: 60 mg Enoxaparin Sodium (Lovenox) 40 mg SC DAILY [facility] PRN Reason: Protocol Last Admin: 06/16/16 08:38 Dose: 40 mg Glipizide (Glucotrol Xl) 5 mg PO DAILY@0800 [facility] Last Admin: 06/16/16 08:37 Dose: 5 mg Glucagon (Glucagen Diagnostic Kit) 0 mg IM STAT PRN; Protocol PRN Reason: Hypoglycemia Protocol Guaifenesin/Dextromethorphan (Robitussin Dm) 10 ml PO TID [facility] Last Admin: 06/16/16 12:22 Dose: 10 ml Home Med (Multivitamin [Multi-Vitamin Daily]) 1 tab PO DAILY [facility] Azithromycin 500 mg/ Sodium (Chloride) 250 mls @ 125 mls/hr IVPB DAILY@0500 [facility] Last Admin: 06/16/16 05:33 Dose: 125 mls/hr Methylprednisolone 80 mg/ (Sodium Chloride) 51.28 mls @ 102.56 mls/hr IV Q6H [facility] Last Admin: 06/16/16 12:23 Dose: 102.56 mls/hr Insulin Detemir (Levemir) 6 units SC [facility] Last Admin: 06/15/16 21:49 Dose: 6 units Insulin Human Regular (Humulin R) 0 units SC [facility] PRN Reason: Protocol Last Admin: 06/16/16 12:22 Dose: 4 units Lisinopril (Zestril) 10 mg PO DAILY [facility] Last Admin: 06/16/16 08:37 Dose: 10 mg Memantine (Namenda) 10 mg PO DAILY [facility] Last Admin: 06/16/16 08:38 Dose: 10 mg Metformin HCl (Glucophage) 1,000 mg PO BID [facility] Last Admin: 06/16/16 08:37 Dose: 1,000 mg Mirtazapine (Remeron) 7.5 mg PO [facility] Multivitamins/Minerals (Therapeutic-M Tab) 1 tab PO DAILY [facility] Last Admin: 06/16/16 08:37 Dose: 1 tab Sitagliptin Phosphate (Januvia) 100 mg PO QPM [facility] Last Admin: 06/15/16 18:10 Dose: 100 mg Results - Vital Signs Recent Vital Signs: Last Vital Signs Temp 97.9 F 06/16/16 08:23 Pulse 91 H 06/16/16 12:42 Resp 18 06/16/16 08:23 BP 126/60 06/16/16 08:37 Pulse Ox 96 06/16/16 12:42 - Labs Labs: Laboratory Results - last 24 hr 06/15/16 06/16/16 06/16/16 20:24 05:07 11:08 POC Glucose (mg/dL) 198 H 260 H 291 H
[2016-06-17] MEDS: Insulin Regular 100 units/ml SC SCH ×4 (00:28→17:48)
[2016-06-17] MEDS: Insulin Detemir 100 Units/ml Inj SC SCH ×2 (00:29→08:56)
[2016-06-17] MEDS: methylPREDNISolone 80 MG in Sodium Chloride 0.9% 50 ML IV SCH ×3 (00:31→12:33)
[2016-06-17] MEDS: Albuterol-Ipratrop 3 mg / 0.5 (3 ml) UD IH SCH ×3 (01:03→13:42)
[2016-06-17] MEDS: Azithromycin 500 MG in Sodium Chloride 0.9% 250 ML IVPB SCH (04:24)
[2016-06-17] MEDS: Budesonide 0.5 mg/2 ml Inhal Susp UD INH SCH ×3 (07:51→19:41)
--- NOTE | 2016-06-17 07:56 | PN ---
DATE: 06/17/2016 The patient seen and examined. Interim events noted. Consults noted and appreciated. Psychiatric f ollowup and consult noted and appreciated. The patient remains in transitional care unit. The patie nt is sleepy, arousable. The patient feels okay. No specific complaints. Shortness of breath is im proved. No chest pain. PHYSICAL EXAMINATION: GENERAL: The patient is in no acute distress. VITAL SIGNS: Stable. HEART: S1, S2 normal, regular. LUNGS: Good bilateral air entry. ABDOMEN: Soft, nontender. EXTREMITIES: No edema, no calf swelling, no tenderness, no acute ischemia. CENTRAL NERVOUS SYSTEM: Essentially unchanged. DIAGNOSTIC DATA: Available diagnostic data reviewed. Overall, patient's general condition is slowly improving, although underlying interstitial lung disea se is chronic and progressive. PLAN: As ordered. Paulie Weaver MD cc: [id number] TT: 06/17/2016 07:56:22 Confirmation # [id number] Dictation # [id number] tn
[2016-06-17] MEDS: Enoxaparin 40 mg Syringe SC SCH (08:53)
[2016-06-17] MEDS: GlipiZIDE 5 mg SR Tab PO SCH (08:54)
[2016-06-17] MEDS: Multivitamin With Minerals Tab PO SCH (08:54)
[2016-06-17] MEDS: guaiFENesin DM 200 mg-20 mg/10 ml UD PO SCH ×3 (08:56→16:17)
[2016-06-17] MEDS ORDERED: Albuterol 0.083% Inhal Sol (2.5 mg/3 mL) UD ONE (12:14)
[2016-06-17] MEDS ORDERED: Albuterol-Ipratrop 3 mg / 0.5 (3 ml) UD IH PRN (14:19)
[2016-06-18] MEDS: methylPREDNISolone 60 MG in Sodium Chloride 0.9% 50 ML IV SCH ×3 (01:17→21:37)
[2016-06-18] MEDS: Insulin Detemir 100 Units/ml Inj SC SCH ×2 (01:18→21:59)
[2016-06-18] MEDS: Insulin Regular 100 units/ml SC SCH ×5 (01:21→21:49)
[2016-06-18] MEDS: Azithromycin 500 MG in Sodium Chloride 0.9% 250 ML IVPB SCH (05:53)
[2016-06-18] MEDS ORDERED: GlipiZIDE 10 mg SR Tab PO SCH (06:16)
[2016-06-18] MEDS: Budesonide 0.5 mg/2 ml Inhal Susp UD INH SCH ×2 (07:44→19:14)
[2016-06-18] MEDS: Albuterol-Ipratrop 3 mg / 0.5 (3 ml) UD IH PRN ×2 (07:45→19:14)
[2016-06-18] MEDS: Enoxaparin 40 mg Syringe SC SCH (08:47)
[2016-06-18] MEDS: guaiFENesin DM 200 mg-20 mg/10 ml UD PO SCH ×3 (08:47→17:03)
[2016-06-18] MEDS: Multivitamin With Minerals Tab PO SCH (08:47)
--- NOTE | 2016-06-18 09:51 | PN ---
DATE: 06/18/2016 The patient seen and examined. Interim events noted. The patient remains in transitional care unit. The patient feels okay, complains of joint pains. No chest pain, no shortness of breath. PHYSICAL EXAMINATION: GENERAL: The patient is in no acute distress. VITAL SIGNS: Stable. HEART: S1, S2 normal, regular. LUNGS: Improved bilateral air exchange, occasional chronic crepitations. EXTREMITIES: No edema, no calf swelling, no tenderness, no acute ischemia. CENTRAL NERVOUS SYSTEM: Essentially unchanged. DIAGNOSTIC DATA: Available reviewed. Overall, patient's general medical condition is improving. PLAN: As ordered. Paulie Weaver MD cc: [id number] TT: 06/18/2016 09:50:41 Confirmation # [id number] Dictation # [id number] en
--- NOTE | 2016-06-18 13:12 | CON ---
DATE: 06/18/2016 HISTORY OF PRESENT ILLNESS: The patient is well known to me from prior admission on the [facility] floor. She was admitted by Dr. Weaver to the transitional care unit because of shortness of breath and exercise intolerance. PAST MEDICAL HISTORY: She has a past medical history of interstitial lung disease, asthma, hypertens ion, hyperlipidemia, osteoporosis. FAMILY HISTORY: Noncontributory. SOCIAL HISTORY: She does not smoke or drink and lives at home with family. REVIEW OF SYSTEMS: Essentially unremarkable except for occasional shortness of breath. PHYSICAL EXAMINATION: GENERAL: The patient is presently comfortable, alert. VITAL SIGNS: Stable. LUNGS: Shows fair aeration with bilateral rales. HEART: S1, S2. ABDOMEN: Soft, nontender, no organomegaly. EXTREMITIES: No edema or cyanosis, but shows changes and some clubbing. CENTRAL NERVOUS SYSTEM: Grossly intact. LABORATORY DATA: Reviewed. IMPRESSION: Acute exacerbation of interstitial lung disease secondary to upper respiratory tract inf ection, history of asthma with mild exacerbation, history of hypertension, hyperlipidemia, and osteop orosis. PLAN: To continue intravenous steroids and taper slowly. Aerosolized bronchodilators already ordere d. I will obtained sputum for Gram stain and cultures. We will continue to follow with you. Furthe r therapy will depend on findings. Jez Casas MD cc: [id number] TT: 06/18/2016 13:12:02 Confirmation # [id number] Dictation # [id number] jonah
[2016-06-19] MEDS: Azithromycin 500 MG in Sodium Chloride 0.9% 250 ML IVPB SCH (06:11)
[2016-06-19] MEDS: Budesonide 0.5 mg/2 ml Inhal Susp UD INH SCH ×3 (07:33→20:01)
[2016-06-19] MEDS: Albuterol-Ipratrop 3 mg / 0.5 (3 ml) UD IH PRN ×2 (07:33→19:40)
--- NOTE | 2016-06-19 07:48 | PN ---
DATE: 06/19/2016 The patient seen and examined. Interim events noted. The patient remains in transitional care unit. Consult noted, appreciated. Pulmonary consult and interventions noted and appreciated. The patien t is sleepy, arousable. Feels okay. No chest pain or shortness of breath at rest. PHYSICAL EXAMINATION: GENERAL: The patient is in no acute distress. VITAL SIGNS: Stable. Physical exam is essentially unchanged. The patient is ____ stable. PLAN: As ordered. Paulie Weaver MD cc: [id number] TT: 06/19/2016 07:48:04 Confirmation # [id number] Dictation # [id number] mn
--- NOTE | 2016-06-19 08:30 | CP.PCM.PN ---
Subjective - Date & Time of Evaluation Date of Evaluation: 06/19/16 Time of Evaluation: 08:30 - Subjective Subjective: STILL COUGHING SOB SLIGHTLY IMPROVED Objective - Vital Signs/Intake and Output Vital Signs (last 24 hours): Temp Pulse Resp BP Pulse Ox 98.1 F 110 H 20 132/76 98 06/18/16 20:33 06/18/16 20:33 06/18/16 20:33 06/18/16 20:33 06/18/16 20:33 - Medications Medications: Current Medications Acetaminophen (Tylenol 325mg Tab) 650 mg PO Q4 PRN PRN Reason: Fever >100.4 F Albuterol/Ipratropium (Duoneb 3 Mg/0.5 Mg (3 Ml) Ud) 3 ml IH RQ6 PRN PRN Reason: Shortness of Breath Last Admin: 06/19/16 07:33 Dose: 3 ml Amlodipine Besylate (Norvasc) 5 mg PO QPM [facility] Last Admin: 06/18/16 17:03 Dose: 5 mg Atorvastatin Calcium (Lipitor) 10 mg PO DAILY [facility] Last Admin: 06/18/16 08:47 Dose: 10 mg Budesonide (Pulmicort Respules) 0.5 mg INH RBID [facility] Last Admin: 06/18/16 19:14 Dose: 0.5 mg Dextrose (Glutose 15) 0 gm PO ONCE PRN; Protocol PRN Reason: Hypoglycemia Protocol Dextrose (Dextrose 50% Inj) 0 ml IV STAT PRN; Protocol PRN Reason: Hyglycemia Protocol Duloxetine HCl (Cymbalta) 60 mg PO DAILY [facility] Last Admin: 06/18/16 08:47 Dose: 60 mg Enoxaparin Sodium (Lovenox) 40 mg SC DAILY [facility] PRN Reason: Protocol Last Admin: 06/18/16 08:47 Dose: 40 mg Glipizide (Glucotrol Xl) 5 mg PO BRK [facility] Glucagon (Glucagen Diagnostic Kit) 0 mg IM STAT PRN; Protocol PRN Reason: Hypoglycemia Protocol Guaifenesin/Dextromethorphan (Robitussin Dm) 10 ml PO TID [facility] Last Admin: 06/18/16 17:03 Dose: 10 ml Home Med (Multivitamin [Multi-Vitamin Daily]) 1 tab PO DAILY [facility] Azithromycin 500 mg/ Sodium (Chloride) 250 mls @ 125 mls/hr IVPB DAILY@0500 [facility] Last Admin: 06/19/16 06:11 Dose: 125 mls/hr Methylprednisolone 60 mg/ (Sodium Chloride) 50.96 mls @ 102.56 mls/hr IV Q12 [facility] Last Admin: 06/18/16 21:37 Dose: 102.56 mls/hr Insulin Detemir (Levemir) 8 units SC HS [facility] Last Admin: 06/18/16 21:59 Dose: 8 u Insulin Human Regular (Humulin R) 0 units SC ACHS [facility] PRN Reason: Protocol Last Admin: 06/18/16 21:49 Dose: Not Given Lactulose (Enulose) 20 gm PO BID PRN PRN Reason: Constipation Last Admin: 06/18/16 18:25 Dose: 20 gm Lisinopril (Zestril) 10 mg PO DAILY [facility] Last Admin: 06/18/16 08:47 Dose: 10 mg Memantine (Namenda) 10 mg PO DAILY [facility] Last Admin: 06/18/16 08:47 Dose: 10 mg Metformin HCl (Glucophage) 1,000 mg PO BID [facility] Last Admin: 06/18/16 17:03 Dose: 1,000 mg Multivitamins/Minerals (Therapeutic-M Tab) 1 tab PO DAILY [facility] Last Admin: 06/18/16 08:47 Dose: 1 tab Sitagliptin Phosphate (Januvia) 100 mg PO QPM [facility] Last Admin: 06/18/16 17:03 Dose: 100 mg - Constitutional Appears: Chronically Ill - Head Exam Head Exam: ATRAUMATIC, NORMAL INSPECTION, NORMOCEPHALIC - Eye Exam Eye Exam: EOMI, Normal appearance, PERRL Pupil Exam: NORMAL ACCOMODATION, PERRL - ENT Exam ENT Exam: Mucous Membranes Moist, Normal Exam - Neck Exam Neck Exam: Full ROM, Normal Inspection. absent: Lymphadenopathy - Respiratory Exam Respiratory Exam: Decreased Breath Sounds, Rales, Wheezes, NORMAL BREATHING PATTERN - Cardiovascular Exam Cardiovascular Exam: REGULAR RHYTHM, +S1, +S2. absent: Murmur - GI/Abdominal Exam GI & Abdominal Exam: Soft, Normal Bowel Sounds. absent: Tenderness - Rectal Exam Rectal Exam: NORMAL INSPECTION - Extremities Exam Extremities Exam: Full ROM, Normal Capillary Refill, Normal Inspection. absent : Joint Swelling, Pedal Edema - Back Exam Back Exam: NORMAL INSPECTION - Neurological Exam Neurological Exam: Alert, Awake, CN II-XII Intact, Normal Gait, Oriented x3 - Psychiatric Exam Psychiatric exam: Normal Affect, Normal Mood - Skin Skin Exam: Dry, Intact, Normal Color, Warm Assessment and Plan - Assessment and Plan (Free Text) Assessment: INTERSTITIAL LUNG DZ ASTHMA EXAC URI Plan: CONTINUE IV ANTIBIOTICS AND STEROIDS AEROSOLIZED BRONCHODILATORS AND 02
[2016-06-19] MEDS: Insulin Regular 100 units/ml SC SCH ×4 (08:46→22:04)
[2016-06-19] MEDS: Enoxaparin 40 mg Syringe SC SCH (08:46)
[2016-06-19] MEDS: guaiFENesin DM 200 mg-20 mg/10 ml UD PO SCH ×3 (08:47→17:33)
[2016-06-19] MEDS: Multivitamin With Minerals Tab PO SCH (08:48)
[2016-06-19] MEDS: GlipiZIDE 5 mg SR Tab PO SCH (08:48)
[2016-06-19] MEDS: methylPREDNISolone 60 MG in Sodium Chloride 0.9% 50 ML IV SCH ×2 (08:51→21:37)
[2016-06-19] MEDS: Insulin Detemir 100 Units/ml Inj SC SCH (22:16)
[2016-06-20] MEDS: Albuterol-Ipratrop 3 mg / 0.5 (3 ml) UD IH PRN (00:59)
[2016-06-20] MEDS: Azithromycin 500 MG in Sodium Chloride 0.9% 250 ML IVPB SCH (04:06)
[2016-06-20] MEDS: Budesonide 0.5 mg/2 ml Inhal Susp UD INH SCH ×2 (07:36→20:31)
[2016-06-20] MEDS: Multivitamin With Minerals Tab PO SCH (08:07)
[2016-06-20] MEDS: Enoxaparin 40 mg Syringe SC SCH (08:07)
[2016-06-20] MEDS: guaiFENesin DM 200 mg-20 mg/10 ml UD PO SCH ×3 (08:08→17:30)
[2016-06-20] MEDS: GlipiZIDE 5 mg SR Tab PO SCH (08:08)
[2016-06-20] MEDS: methylPREDNISolone 60 MG in Sodium Chloride 0.9% 50 ML IV SCH ×2 (08:09→20:40)
[2016-06-20] MEDS: Insulin Regular 100 units/ml SC SCH (08:11)
[2016-06-20] MEDS: Insulin Lispro (humaLOG) 100 Units/ml Inj SC SCH ×5 (12:21→21:48)
--- NOTE | 2016-06-20 14:06 | CP.PCM.PN ---
Subjective - Date & Time of Evaluation Date of Evaluation: 06/20/16 Time of Evaluation: 13:25 - Subjective Subjective: psychiatry follow up seen with deya, who intepreted [place] to [place] cc: my family drives me crispin hpi: 89 yo female, on cymbalta started by her primary care doctor. she reports being very depressed since of children over last 2 years. she has been on cybalta which she states helps "a little" but she states the depression comes and goes. she endorses periods where she feels like taking her own life. she does reports some epidodes of gi distress/nausea. she is open to treatment on the psychiatric floor. mse: pt is alert and oriented x3. she is reporting feeling depressed and anxious and her affect is constricted. she reports frequent suicidal thoughts, but feels too weak to carry out any plans. she denies any homicidal thoughts. she denies any auditory/visual hallucinations. she has fair i/j. assessment: mdd, single episode moderate plan: would recommend transfer to 3 when medically stable to adjust medications- has only been on cymbalta which is partially effective and may be causing some GI side effects. medication adjustments can be more safety made on the 3ns unit and follow up care can be arranged pt is agreeable to transfer would call access center and [facility] to facilitate transfer when medically stable. Objective - Vital Signs/Intake and Output Vital Signs (last 24 hours): Temp Pulse Resp BP Pulse Ox 98.1 F 83 20 100/56 L 99 06/20/16 08:13 06/20/16 11:58 06/20/16 08:13 06/20/16 11:58 06/20/16 08:13 - Medications Medications: Current Medications Acetaminophen (Tylenol 325mg Tab) 650 mg PO Q4 PRN PRN Reason: Fever >100.4 F Albuterol/Ipratropium (Duoneb 3 Mg/0.5 Mg (3 Ml) Ud) 3 ml IH RQ6 PRN PRN Reason: Shortness of Breath Last Admin: 06/20/16 00:59 Dose: 3 ml Amlodipine Besylate (Norvasc) 5 mg PO QPM [facility] Last Admin: 06/19/16 22:05 Dose: 5 mg Atorvastatin Calcium (Lipitor) 10 mg PO DAILY [facility] Last Admin: 06/20/16 08:08 Dose: 10 mg Bisacodyl (Dulcolax) 10 mg [place] ONCE PRN PRN Reason: Constipation Budesonide (Pulmicort Respules) 0.5 mg INH RBID [facility] Last Admin: 06/20/16 07:36 Dose: 0.5 mg Dextrose (Glutose 15) 0 gm PO ONCE PRN; Protocol PRN Reason: Hypoglycemia Protocol Dextrose (Dextrose 50% Inj) 0 ml IV STAT PRN; Protocol PRN Reason: Hyglycemia Protocol Duloxetine HCl (Cymbalta) 60 mg PO DAILY [facility] Last Admin: 06/20/16 08:07 Dose: 60 mg Enoxaparin Sodium (Lovenox) 40 mg SC DAILY [facility] PRN Reason: Protocol Last Admin: 06/20/16 08:07 Dose: 40 mg Glipizide (Glucotrol Xl) 10 mg PO ACBD [facility] Glucagon (Glucagen Diagnostic Kit) 0 mg IM STAT PRN; Protocol PRN Reason: Hypoglycemia Protocol Guaifenesin/Dextromethorphan (Robitussin Dm) 10 ml PO TID [facility] Last Admin: 06/20/16 12:25 Dose: 10 ml Home Med (Multivitamin [Multi-Vitamin Daily]) 1 tab PO DAILY [facility] Azithromycin 500 mg/ Sodium (Chloride) 250 mls @ 125 mls/hr IVPB DAILY@0500 [facility] Last Admin: 06/20/16 04:06 Dose: 125 mls/hr Methylprednisolone 60 mg/ (Sodium Chloride) 50.96 mls @ 102.56 mls/hr IV Q12 [facility] Last Admin: 06/20/16 08:09 Dose: 100 mls/hr Insulin Detemir (Levemir) 30 units SC HS [facility] Insulin Human Lispro (Humalog) 10 units SC AC [facility] Last Admin: 06/20/16 12:21 Dose: 10 units Insulin Human Lispro (Humalog) 0 units SC ACHS [facility] PRN Reason: Protocol Last Admin: 06/20/16 12:22 Dose: 4 units Lactulose (Enulose) 20 gm PO BID PRN PRN Reason: Constipation Last Admin: 06/18/16 18:25 Dose: 20 gm Lisinopril (Zestril) 10 mg PO DAILY [facility] Last Admin: 06/20/16 11:58 Dose: 10 mg Memantine (Namenda) 10 mg PO DAILY [facility] Last Admin: 06/20/16 08:08 Dose: 10 mg Multivitamins/Minerals (Therapeutic-M Tab) 1 tab PO DAILY [facility] Last Admin: 06/20/16 08:07 Dose: 1 tab Sitagliptin Phosphate (Januvia) 100 mg PO QPM [facility] Last Admin: 06/19/16 17:32 Dose: 100 mg
--- NOTE | 2016-06-20 15:18 | CON ---
DATE: 06/20/2016 In room 708, CCU. This is an 89-year-old female with recent uncontrolled type 2 insulin-requiring diabetes with recent acute exacerbation of asthmatic bronchitis and currently on IV steroid therapy with supervening hyper glycemic accelerations and is now being referred for diabetic evaluation and management. She is curr ently still on Solu-Medrol given as 50 mg q.12 hours as ordered. PAST MEDICAL HISTORY: As mentioned above, history of type 2 diabetes on a combination of oral hypogl ycemic therapy given at home using metformin at 1000 mg b.i.d. and Amaryl at 1 mg daily with glipizid e given as 5 mg daily. She is also on Januvia at 100 mg at dinnertime and uses a very low dose of in sulin given as Levemir 6 units subQ at bedtime daily. History of hypertension and dyslipidemia, his tory of coronary artery disease and peripheral arterial disease and vasculopathy. History of chronic asthmatic bronchitis with frequent exacerbations of the same. Also, history of generalized osteoart hritis and osteoporosis, currently on Fosamax as long-term medication. FAMILY HISTORY: Positive for diabetes and hypertension. SOCIAL HISTORY: The patient has supportive family. Has a remote history of smoking. At this time, has had increasing anxiety and depression with the recent of 2 of her children and actually has had suicidal ideations, but no evidence of any suicidal gestures or actions. REVIEW OF SYSTEMS: As mentioned above, admits to generalized body weakness with easy fatigability an d tiredness and suboptimal energy level. Also admits to episodic dizziness and lightheadedness, wors ened on the day of admission. No chest pains or palpitations or PNDs, although admits to occasional bouts of paroxysmal nocturnal dyspnea and even dyspnea on exertion. Her oral intake is quite variabl e with nausea, dyspepsia, and vague upper abdominal pains. Also, admits to marked polyuria, nocturia , especially in the last few days as inpatient. PHYSICAL EXAMINATION: GENERAL: This is an average built female in no apparent distress. VITAL SIGNS: Blood 140/80, pulse of 70 beats per minute and regular, temperature 98, respirations 20 . Height is 5 feet 4, weight is 129 pounds. HEENT: Head normocephalic. Eyes anicteric with pink conjunctivae. Fundoscopy not possible at this time. Ears, nose and throat otherwise normal. NECK: Supple. Thyroid gland is normal size. No carotid bruits. No cervical adenopathy. CARDIOPULMONARY: Some adynamic precordium. S1, S2 is rapid and regular. LUNGS: Clear to auscultation. ABDOMEN: Flat, soft with positive bowel sounds. EXTREMITIES: No peripheral edema. Pulses are +2 bilaterally. LABORATORY DATA: There is no current chemistry. Her glucose levels have ranged from 349-331 mg/dL. It was 318 fasting prebreakfast this morning as noted. ASSESSMENT: This is an 89-year-old female with uncontrolled and decompensated type 2 insulin-requiri ng diabetes with marked hyperglycemic accelerations related to the intercurrent IV steroid therapy, n ow with increased insulin resistance and further impaired glucose tolerance thereof. She is currentl y fairly optimally controlled on a combination of oral hypoglycemic therapy as mentioned. PLAN OF MANAGEMENT: We will modify her current basal insulin therapy and add a basal and bolus insul in drug combination to obviate hypoglycemia and detailed orders have been given. We will start her o n Levemir given as 20 units subQ at bedtime daily to start tonight. We will add Humalog given as 10 units subQ t.i.d. before meals to start at dinnertime today as ordered. We will modify the coverage scale to obviate hypoglycemia and detailed orders have been given for 20 units subQ at bedtime daily. We will titrate incrementally to optimize metabolic control and we will modify her current insulin regimen and coverage to obviate hypoglycemia. We will follow and advise accordingly. Romy De Jesus MD cc: [id number] TT: 06/20/2016 15:17:36 Confirmation # [id number] Dictation # [id number] tn
[2016-06-20] MEDS: GlipiZIDE 10 mg SR Tab PO SCH (17:23)
[2016-06-20] MEDS ORDERED: Insulin Detemir 100 Units/ml Inj SC SCH (22:00)
[2016-06-21] MEDS: Insulin Lispro (humaLOG) 100 Units/ml Inj SC SCH ×7 (06:42→22:00)
[2016-06-21] MEDS: GlipiZIDE 10 mg SR Tab PO SCH ×2 (06:59→17:32)
[2016-06-21 07:18] LABS: ALKALINE PHOSPHATASE 42 U/L (38-126); ALT/SGPT 26 U/L (9-52); AST/SGOT 18 U/L (14-36); BILIRUBIN,TOTAL 0.2 mg/dl (0.2-1.3); BLOOD UREA NITROGEN 19 mg/dl (7-17); CALCIUM 9.6 mg/dL (8.4-10.2); CARBON DIOXIDE 32 mmol/L (22-30); CHLORIDE 102 mmol/L (98-107); GFR AFRICAN-AMERICAN > 60; GLUCOSE,RANDOM 163 mg/dL (65-105); SODIUM 142 mmol/l (132-148); TOTAL PROTEIN 6.1 G/DL (6.3-8.2)
[2016-06-21 07:36] LABS: THYROID STIMULATING HORMONE 0.25 mIU/ML (0.46-4.68)
[2016-06-21 07:40] LABS: POTASSIUM 5.8 MMOL/L (3.6-5.0)
[2016-06-21] MEDS: Budesonide 0.5 mg/2 ml Inhal Susp UD INH SCH ×2 (07:40→19:17)
[2016-06-21] MEDS: Enoxaparin 40 mg Syringe SC SCH (08:39)
[2016-06-21] MEDS: Multivitamin With Minerals Tab PO SCH (08:40)
[2016-06-21] MEDS: guaiFENesin DM 200 mg-20 mg/10 ml UD PO SCH ×3 (08:40→22:02)
--- NOTE | 2016-06-21 10:08 | CP.PCM.PN ---
Subjective - Date & Time of Evaluation Date of Evaluation: 06/21/16 Time of Evaluation: 10:08 - Subjective Subjective: CALLED BACK TO SEE PT BY DR RAMOS SHE WAS SUPPOSED TO BE TRANSFERRED TO THE PSYCH WILLS BUT REFUSED WILL CONTINUE RX ORDERED WILL CONTINUE TO FOLLOW Objective - Vital Signs/Intake and Output Vital Signs (last 24 hours): Temp Pulse Resp BP Pulse Ox 98.0 F 71 20 122/71 99 06/21/16 07:58 06/21/16 08:40 06/21/16 07:58 06/21/16 08:40 06/21/16 07:58 - Medications Medications: Current Medications Acetaminophen (Tylenol 325mg Tab) 650 mg PO Q4 PRN PRN Reason: Fever >100.4 F Albuterol/Ipratropium (Duoneb 3 Mg/0.5 Mg (3 Ml) Ud) 3 ml IH RQ6 PRN PRN Reason: Shortness of Breath Last Admin: 06/20/16 00:59 Dose: 3 ml Amlodipine Besylate (Norvasc) 5 mg PO QPM [facility] Last Admin: 06/20/16 17:30 Dose: 5 mg Atorvastatin Calcium (Lipitor) 10 mg PO DAILY@2100 [facility] Bisacodyl (Dulcolax) 10 mg [place] ONCE PRN PRN Reason: Constipation Budesonide (Pulmicort Respules) 0.5 mg INH RBID [facility] Last Admin: 06/21/16 07:40 Dose: 0.5 mg Dextrose (Glutose 15) 0 gm PO ONCE PRN; Protocol PRN Reason: Hypoglycemia Protocol Dextrose (Dextrose 50% Inj) 0 ml IV STAT PRN; Protocol PRN Reason: Hyglycemia Protocol Duloxetine HCl (Cymbalta) 60 mg PO DAILY [facility] Last Admin: 06/21/16 08:39 Dose: 60 mg Enoxaparin Sodium (Lovenox) 40 mg SC DAILY [facility] PRN Reason: Protocol Last Admin: 06/21/16 08:39 Dose: 40 mg Glipizide (Glucotrol Xl) 10 mg PO ACBD [facility] Last Admin: 06/21/16 06:59 Dose: 10 mg Glucagon (Glucagen Diagnostic Kit) 0 mg IM STAT PRN; Protocol PRN Reason: Hypoglycemia Protocol Guaifenesin/Dextromethorphan (Robitussin Dm) 10 ml PO TID [facility] Last Admin: 06/21/16 08:40 Dose: 10 ml Home Med (Multivitamin [Multi-Vitamin Daily]) 1 tab PO DAILY [facility] Methylprednisolone 60 mg/ (Sodium Chloride) 50.96 mls @ 102.56 mls/hr IV Q12@ 0500,1700 [facility] Insulin Detemir (Levemir) 30 units SC HS [facility] Last Admin: 06/20/16 21:44 Dose: 30 unit Insulin Human Lispro (Humalog) 10 units SC AC [facility] Last Admin: 06/21/16 08:39 Dose: 10 units Insulin Human Lispro (Humalog) 0 units SC ACHS [facility] PRN Reason: Protocol Last Admin: 06/21/16 06:42 Dose: Not Given Lactulose (Enulose) 20 gm PO BID PRN PRN Reason: Constipation Last Admin: 06/18/16 18:25 Dose: 20 gm Lisinopril (Zestril) 10 mg PO DAILY [facility] Last Admin: 06/21/16 08:40 Dose: 10 mg Memantine (Namenda) 10 mg PO DAILY [facility] Last Admin: 06/21/16 08:40 Dose: 10 mg Multivitamins/Minerals (Therapeutic-M Tab) 1 tab PO DAILY [facility] Last Admin: 06/21/16 08:40 Dose: 1 tab Sitagliptin Phosphate (Januvia) 100 mg PO QPM [facility] Last Admin: 06/20/16 17:31 Dose: 100 mg - Labs Labs: 06/21/16 06:39
[2016-06-21] MEDS ORDERED: Albuterol-Ipratrop 3 mg / 0.5 (3 ml) UD INH STA (10:19)
[2016-06-21] MEDS: Albuterol-Ipratrop 3 mg / 0.5 (3 ml) UD IH SCH ×2 (13:19→19:16)
--- NOTE | 2016-06-21 14:10 | PN ---
DATE: 06/21/2016 SUBJECTIVE: The patient seen and examined. Interim events noted. Consults noted, appreciated. Psy chiatric followup and interventions noted and appreciated. The patient remains in transitional care unit. The patient is sleepy, arousable, feels okay. No specific complaint of chest pain or shortnes s of breath. PHYSICAL EXAMINATION: GENERAL: The patient is in no acute distress. VITAL SIGNS: Stable. HEART: S1, S2 normal, regular. LUNGS: Good bilateral air entry. ABDOMEN: Soft, nontender. EXTREMITIES: No edema, no calf swelling, no tenderness, no acute ischemia. CENTRAL NERVOUS SYSTEM: Essentially unchanged. DIAGNOSTIC DATA: Available diagnostic data reviewed. Pulmonary followup and intervention noted and appreciated. Sodium 142, potassium 5.8, chloride 102, bicarb 32, BUN 19, creatinine 0.7. Glucose 14 5 and 163. SMA-12 is otherwise unremarkable. TSH level is 0.25. Overall, the patient's general medical condition is stable. PLAN: As ordered. Paulie Weaver MD cc: [id number] TT: 06/21/2016 12:01:34 Confirmation # [id number] Dictation # [id number] an
[2016-06-21] MEDS ORDERED: Sod Polystyrene Sulf 15 gm/60 ml Oral Susp PO ONE ×2 (14:15→16:00)
[2016-06-21] MEDS: methylPREDNISolone 60 MG in Sodium Chloride 0.9% 50 ML IV SCH (16:32)
--- NOTE | 2016-06-21 16:51 | PN ---
DATE: 06/21/2016 ROOM: 708 This is an 89-year-old female with recent acute exacerbation of COPD and asthmatic bronchitis, currcharlie tly on IV steroid therapy and is now being followed closely for metabolic management. Her glycemic l evels are fluctuating, but much improved at this time and the latest glucose levels have ranged from 69-145 and 212 mg/dL. Her latest chemistries showed a BUN of 19, sodium 142, potassium 5.8, chloride 102, CO2 32, glucose 163 and creatinine 0.7. So, at this time, we will modify and lower her basal a nd bolus insulin regimen to optimize metabolic control. We will lower the Humalog to 6 units subQ t. i.d. before meals to start at dinnertime today as ordered. We will also lower the basal insulin to L evemir given as 20 units subQ at bedtime daily to start tonight. We will continue the low-dose corre ction scale using Humalog insulin as ordered. We will obtain serial chemistries and supplement ivett yee as needed. We will follow. Romy De Jesus MD cc: [id number] TT: 06/21/2016 16:51:14 Confirmation # [id number] Dictation # [id number] tn
[2016-06-21] MEDS: Acetylcysteine 20% Inhal Soln (4ml) INH SCH (19:17)
[2016-06-21] MEDS: Insulin Detemir 100 Units/ml Inj SC SCH (22:01)
[2016-06-22] MEDS: Albuterol-Ipratrop 3 mg / 0.5 (3 ml) UD IH SCH ×4 (01:11→19:43)
[2016-06-22] MEDS: guaiFENesin DM 200 mg-20 mg/10 ml UD PO SCH ×4 (04:00→21:23)
[2016-06-22] MEDS: methylPREDNISolone 60 MG in Sodium Chloride 0.9% 50 ML IV SCH (05:49)
[2016-06-22] MEDS: Insulin Lispro (humaLOG) 100 Units/ml Inj SC SCH ×7 (06:42→21:37)
[2016-06-22] MEDS: GlipiZIDE 10 mg SR Tab PO SCH ×2 (06:43→17:22)
[2016-06-22] MEDS: Budesonide 0.5 mg/2 ml Inhal Susp UD INH SCH ×2 (08:00→19:43)
[2016-06-22] MEDS: Acetylcysteine 20% Inhal Soln (4ml) INH SCH (08:04)
[2016-06-22 08:16] LABS: BLOOD UREA NITROGEN 18 mg/dl (7-17); CALCIUM 8.7 mg/dL (8.4-10.2); CARBON DIOXIDE 31 mmol/L (22-30); CHLORIDE 101 mmol/L (98-107); GFR AFRICAN-AMERICAN > 60; GLUCOSE,RANDOM 108 mg/dL (65-105); SODIUM 140 mmol/l (132-148)
[2016-06-22] MEDS: Enoxaparin 40 mg Syringe SC SCH (08:17)
[2016-06-22] MEDS: Multivitamin With Minerals Tab PO SCH (08:18)
--- NOTE | 2016-06-22 08:52 | CP.PCM.PN ---
Subjective - Date & Time of Evaluation Date of Evaluation: 06/22/16 Time of Evaluation: 08:52 - Subjective Subjective: sob and cough continue to improve Objective - Vital Signs/Intake and Output Vital Signs (last 24 hours): Temp Pulse Resp BP Pulse Ox 97.2 F L 75 20 118/67 98 06/22/16 08:21 06/22/16 08:21 06/22/16 08:21 06/22/16 08:21 06/22/16 08:21 - Medications Medications: Current Medications Acetaminophen (Tylenol 325mg Tab) 650 mg PO Q4 PRN PRN Reason: Fever >100.4 F Acetylcysteine (Acetylcysteine 20%) 2 ml INH RBID [facility] Last Admin: 06/22/16 08:04 Dose: 2 ml Albuterol/Ipratropium (Duoneb 3 Mg/0.5 Mg (3 Ml) Ud) 3 ml IH RQ6 [facility] Last Admin: 06/22/16 08:05 Dose: 3 ml Amlodipine Besylate (Norvasc) 5 mg PO QPM [facility] Last Admin: 06/21/16 17:32 Dose: 5 mg Atorvastatin Calcium (Lipitor) 10 mg PO DAILY@2100 [facility] Last Admin: 06/21/16 22:02 Dose: 10 mg Bisacodyl (Dulcolax) 10 mg [place] ONCE PRN PRN Reason: Constipation Budesonide (Pulmicort Respules) 0.5 mg INH RBID [facility] Last Admin: 06/21/16 19:17 Dose: 0.5 mg Dextrose (Glutose 15) 0 gm PO ONCE PRN; Protocol PRN Reason: Hypoglycemia Protocol Dextrose (Dextrose 50% Inj) 0 ml IV STAT PRN; Protocol PRN Reason: Hyglycemia Protocol Duloxetine HCl (Cymbalta) 60 mg PO DAILY [facility] Last Admin: 06/22/16 08:14 Dose: 60 mg Enoxaparin Sodium (Lovenox) 40 mg SC DAILY [facility] PRN Reason: Protocol Last Admin: 06/22/16 08:17 Dose: 40 mg Glipizide (Glucotrol Xl) 10 mg PO ACBD [facility] Last Admin: 06/22/16 06:43 Dose: 10 mg Glucagon (Glucagen Diagnostic Kit) 0 mg IM STAT PRN; Protocol PRN Reason: Hypoglycemia Protocol Guaifenesin/Dextromethorphan (Robitussin Dm) 10 ml PO Q6 [facility] Last Admin: 06/22/16 04:00 Dose: 10 ml Home Med (Multivitamin [Multi-Vitamin Daily]) 1 tab PO DAILY [facility] Methylprednisolone 60 mg/ (Sodium Chloride) 50.96 mls @ 102.56 mls/hr IV Q12@ 0500,1700 [facility] Last Admin: 06/22/16 05:49 Dose: 102.5 mls/hr Insulin Detemir (Levemir) 20 units SC HS [facility] Last Admin: 06/21/16 22:01 Dose: 20 units Insulin Human Lispro (Humalog) 0 units SC ACHS [facility] PRN Reason: Protocol Last Admin: 06/22/16 06:42 Dose: Not Given Insulin Human Lispro (Humalog) 6 units SC AC [facility] Last Admin: 06/22/16 08:15 Dose: 6 units Lactulose (Enulose) 20 gm PO BID PRN PRN Reason: Constipation Last Admin: 06/18/16 18:25 Dose: 20 gm Lisinopril (Zestril) 10 mg PO DAILY [facility] Last Admin: 06/22/16 08:18 Dose: 10 mg Memantine (Namenda) 10 mg PO DAILY [facility] Last Admin: 06/22/16 08:17 Dose: 10 mg Multivitamins/Minerals (Therapeutic-M Tab) 1 tab PO DAILY [facility] Last Admin: 06/22/16 08:18 Dose: 1 tab Sitagliptin Phosphate (Januvia) 100 mg PO QPM [facility] Last Admin: 06/21/16 17:34 Dose: 100 mg - Labs Labs: 06/22/16 07:15 - Constitutional Appears: No Acute Distress - Head Exam Head Exam: ATRAUMATIC, NORMAL INSPECTION, NORMOCEPHALIC - Eye Exam Eye Exam: EOMI, Normal appearance, PERRL Pupil Exam: NORMAL ACCOMODATION, PERRL - ENT Exam ENT Exam: Mucous Membranes Moist, Normal Exam - Neck Exam Neck Exam: Full ROM, Normal Inspection. absent: Lymphadenopathy - Respiratory Exam Respiratory Exam: Decreased Breath Sounds, Prolonged Expiratory Phase, Rales, NORMAL BREATHING PATTERN - Cardiovascular Exam Cardiovascular Exam: REGULAR RHYTHM, +S1, +S2. absent: Murmur - GI/Abdominal Exam GI & Abdominal Exam: Soft, Normal Bowel Sounds. absent: Tenderness - Rectal Exam Rectal Exam: NORMAL INSPECTION - Extremities Exam Extremities Exam: Full ROM, Normal Capillary Refill, Normal Inspection. absent : Joint Swelling, Pedal Edema - Back Exam Back Exam: NORMAL INSPECTION - Neurological Exam Neurological Exam: Alert, Awake, CN II-XII Intact, Normal Gait, Oriented x3 - Psychiatric Exam Psychiatric exam: Normal Affect, Normal Mood - Skin Skin Exam: Dry, Intact, Normal Color, Warm Assessment and Plan - Assessment and Plan (Free Text) Assessment: interstitial lung dz uri Plan: taper steroids
--- NOTE | 2016-06-22 13:32 | PN ---
DATE: 06/22/2016 ROOM: 708 This is an 89-year-old female with recent uncontrolled type 2 insulin-requiring diabetes, transferred here to TCU for further management of recent acute exacerbation of COPD and asthmatic bronchitis, an d is now being followed closely for metabolic management. She is still on IV steroid therapy, which has been tapered down today as noted, but continues to have glycemic fluctuations as noted today. Her glucose levels have ranged from 304-331 mg/dL. Her latest chemistry showed a BUN of 18, sodium 1 40, potassium 4.0, chloride 101, CO2 31, glucose 108 and creatinine 0.6. So at this time, we will modify her basal and bolus insulin regimen and increase the Humalog to 10 un its subQ t.i.d. before meals to start at dinnertime today as ordered. We will continue the basal ins ulin given as Levemir at 20 units subQ at bedtime daily as given. We will also continue the low-dose correction scale using Humalog insulin as ordered to allow for dose equilibration. We will follow a nd advise accordingly. Romy De Jesus MD cc: [id number] TT: 06/22/2016 13:31:27 Confirmation # [id number] Dictation # [id number] en
[2016-06-22] MEDS: methylPREDNISolone 40 MG in Sodium Chloride 0.9% 50 ML IV SCH (17:31)
--- NOTE | 2016-06-22 18:22 | PN ---
DATE: 06/22/2016 The patient seen and examined. Interim events noted. The patient remains in transitional care unit, to go to geropsych unit. No chest pain or shortness of breath. PHYSICAL EXAMINATION: GENERAL: The patient is in no acute distress. VITAL SIGNS: Temperature 98.6, pulse 113, respirations 20, blood pressure , saturation %. HEART: S1, S2 normal, regular. LUNGS: Good bilateral air entry. ABDOMEN: Soft, nontender. EXTREMITIES: No edema, no calf swelling, no tenderness, no acute ischemia. CENTRAL NERVOUS SYSTEM: Essentially unchanged. DIAGNOSTIC DATA: Available diagnostic data reviewed. Endocrinology and pulmonary consults noted and appreciated. Overall, patient's general medical condition is stable. PLAN: As ordered. Paulie Weaver MD cc: [id number] TT: 06/22/2016 18:21:42 Confirmation # [id number] Dictation # [id number] keren
[2016-06-22] MEDS: Insulin Detemir 100 Units/ml Inj SC SCH (21:26)
[2016-06-23] MEDS: Albuterol-Ipratrop 3 mg / 0.5 (3 ml) UD IH SCH ×4 (01:14→19:52)
[2016-06-23] MEDS: guaiFENesin DM 200 mg-20 mg/10 ml UD PO SCH ×4 (05:11→22:50)
[2016-06-23] MEDS: methylPREDNISolone 40 MG in Sodium Chloride 0.9% 50 ML IV SCH ×2 (05:56→17:20)
[2016-06-23] MEDS: Insulin Lispro (humaLOG) 100 Units/ml Inj SC SCH ×7 (06:58→22:46)
[2016-06-23] MEDS: GlipiZIDE 10 mg SR Tab PO SCH ×2 (07:33→17:17)
[2016-06-23] MEDS: Budesonide 0.5 mg/2 ml Inhal Susp UD INH SCH ×2 (07:52→19:52)
--- NOTE | 2016-06-23 08:21 | PN ---
DATE: 06/23/2016 The patient seen and examined. Interim events noted. The patient remains in transitional care unit. The patient is awake, responsive. Feels okay. No specific complaint. No chest pain, no shortness of breath. PHYSICAL EXAMINATION: GENERAL: The patient is in no acute distress. VITAL SIGNS: Stable. HEART: S1, S2 normal, regular. LUNGS: Good bilateral air exchange. ABDOMEN: Soft, nontender. EXTREMITIES: No edema, no calf swelling, no tenderness, no acute ischemia. CENTRAL NERVOUS SYSTEM: Essentially unchanged. DIAGNOSTIC DATA: Available reviewed. Overall, patient's general medical condition is stable. PLAN: As ordered. The patient has refused to go to geropsych unit. Paulie Weaver MD cc: [id number] TT: 06/23/2016 08:20:29 Confirmation # [id number] Dictation # [id number] en
[2016-06-23] MEDS: Enoxaparin 40 mg Syringe SC SCH (09:23)
[2016-06-23] MEDS: Multivitamin With Minerals Tab PO SCH (09:25)
--- NOTE | 2016-06-23 13:33 | PN ---
DATE: 06/23/2016 In TCU room 708 This is an 89-year-old female with recent uncontrolled type 2 insulin-requiring diabetes now being fo llowed closely for metabolic management. She was started on IV steroid therapy for recent acute exac erbation of asthmatic bronchitis and COPD and is now being followed closely for metabolic management. She is still on the IV steroids given as 40 mg every 12 hours as ordered. Her latest glucose level s have ranged from 184-190 and 250 mg/dL. So, at this time, we will continue the same basal and bolu s insulin regimen to allow for dose equilibration and keep her on the Levemir at 20 units subQ at bed time daily as ordered. We will also continue the Humalog at 10 units subQ t.i.d. before meals as giv en. She is also on oral hypoglycemic therapy with Januvia at 100 mg daily and Glucotrol at 10 mg b.i .d. as ordered. We will obtain serial chemistries and supplement accordingly as needed. We will fol low and advise accordingly. Romy De Jesus MD cc: [phone] TT: 06/23/2016 13:32:39 Confirmation # [id number] Dictation # [id number] tn
[2016-06-23] MEDS: Insulin Detemir 100 Units/ml Inj SC SCH (22:48)
[2016-06-24] MEDS: Albuterol-Ipratrop 3 mg / 0.5 (3 ml) UD IH SCH ×4 (01:00→19:51)
[2016-06-24] MEDS: guaiFENesin DM 200 mg-20 mg/10 ml UD PO SCH ×4 (05:09→21:35)
[2016-06-24] MEDS: methylPREDNISolone 40 MG in Sodium Chloride 0.9% 50 ML IV SCH (05:10)
[2016-06-24] MEDS: Insulin Lispro (humaLOG) 100 Units/ml Inj SC SCH ×7 (06:37→21:32)
[2016-06-24] MEDS: GlipiZIDE 10 mg SR Tab PO SCH ×2 (06:59→16:21)
[2016-06-24] MEDS: Budesonide 0.5 mg/2 ml Inhal Susp UD INH SCH ×2 (08:18→19:51)
[2016-06-24] MEDS: Multivitamin With Minerals Tab PO SCH (09:10)
--- NOTE | 2016-06-24 09:22 | PN ---
DATE: 06/24/2016 The patient seen and examined. Interim events noted. The patient remains in transitional care unit. The patient is sleepy, arousable, feels okay. No specific complaint of chest pain or shortness of breath at rest. PHYSICAL EXAMINATION: GENERAL: The patient is in no acute distress. VITAL SIGNS: Stable. HEART: S1, S2 normal, regular. LUNGS: Good bilateral air exchange. ABDOMEN: Soft, nontender. EXTREMITIES: No calf swelling, no tenderness. No acute ischemia. CENTRAL NERVOUS SYSTEM: Essentially unchanged. DIAGNOSTIC DATA: Available diagnostic data reviewed. Overall, patient's general medical condition is stable, although long-term functional prognosis remai ns poor. PLAN: As ordered. Paulie Weaver MD cc: [phone] TT: 06/24/2016 09:21:40 Confirmation # [id number] Dictation # [id number] reyna
--- NOTE | 2016-06-24 12:04 | PN ---
DATE: 06/24/2016 ROOM: 708 This is an 89-year-old female with recent uncontrolled type 2 insulin-requiring diabetes with ongoing IV steroid therapy given for exacerbation of asthmatic bronchitis with expected hyperglycemic accele rations thereof. Her glycemic levels are fluctuating, but improved, and the latest chemistries showe d a BUN of 18, sodium 140, potassium 4.0, chloride 101, CO2 31, glucose 108, and creatinine 0.6. Her glucose values have ranged from 181 to 213 and 342 mg/dL. So at this time, as she is still on the I V steroid therapy as given, we will continue the modified basal insulin given as Levemir 20 units sub cutaneous at bedtime daily with Humalog given as 10 units subcutaneous t.i.d. before meals as ordered . We will titrate incrementally as indicated to optimize metabolic control. We will follow and advi se accordingly. Romy De Jesus MD cc: [id number] TT: 06/24/2016 12:03:36 Confirmation # [id number] Dictation # [id number] sn
--- NOTE | 2016-06-24 12:39 | CP.PCM.PN ---
Subjective - Date & Time of Evaluation Date of Evaluation: 06/24/16 Time of Evaluation: 12:39 - Subjective Subjective: SOB LESS ABLE TO AMBULATE WITH DAUGHTER Objective - Vital Signs/Intake and Output Vital Signs (last 24 hours): Temp Pulse Resp BP Pulse Ox 98.0 F 76 20 112/68 99 06/24/16 08:25 06/24/16 09:12 06/24/16 08:25 06/24/16 09:12 06/24/16 08:25 - Medications Medications: Current Medications Acetaminophen (Tylenol 325mg Tab) 650 mg PO Q4 PRN PRN Reason: Fever >100.4 F Albuterol/Ipratropium (Duoneb 3 Mg/0.5 Mg (3 Ml) Ud) 3 ml IH RQ6 [facility] Last Admin: 06/24/16 08:18 Dose: 3 ml Amlodipine Besylate (Norvasc) 5 mg PO QPM [facility] Last Admin: 06/23/16 17:18 Dose: 5 mg Atorvastatin Calcium (Lipitor) 10 mg PO DAILY@2100 [facility] Last Admin: 06/23/16 22:49 Dose: 10 mg Bisacodyl (Dulcolax) 10 mg [place] ONCE PRN PRN Reason: Constipation Budesonide (Pulmicort Respules) 0.5 mg INH RBID [facility] Last Admin: 06/24/16 08:18 Dose: 0.5 mg Dextrose (Glutose 15) 0 gm PO ONCE PRN; Protocol PRN Reason: Hypoglycemia Protocol Dextrose (Dextrose 50% Inj) 0 ml IV STAT PRN; Protocol PRN Reason: Hyglycemia Protocol Duloxetine HCl (Cymbalta) 60 mg PO DAILY [facility] Last Admin: 06/24/16 09:10 Dose: 60 mg Glipizide (Glucotrol Xl) 10 mg PO ACBD [facility] Last Admin: 06/24/16 06:59 Dose: 10 mg Glucagon (Glucagen Diagnostic Kit) 0 mg IM STAT PRN; Protocol PRN Reason: Hypoglycemia Protocol Guaifenesin/Dextromethorphan (Robitussin Dm) 10 ml PO Q6 [facility] Last Admin: 06/24/16 09:12 Dose: 10 ml Home Med (Multivitamin [Multi-Vitamin Daily]) 1 tab PO DAILY [facility] Methylprednisolone 40 mg/ (Sodium Chloride) 50.64 mls @ 102.56 mls/hr IV Q12@ 0500,1700 [facility] Last Admin: 06/24/16 05:10 Dose: 100 mls/hr Insulin Detemir (Levemir) 20 units SC HS [facility] Last Admin: 06/23/16 22:48 Dose: 20 units Insulin Human Lispro (Humalog) 0 units SC ACHS [facility] PRN Reason: Protocol Last Admin: 06/24/16 12:08 Dose: 4 units Insulin Human Lispro (Humalog) 10 units SC AC [facility] Last Admin: 06/24/16 12:07 Dose: 10 units Lactulose (Enulose) 20 gm PO BID PRN PRN Reason: Constipation Last Admin: 06/18/16 18:25 Dose: 20 gm Lisinopril (Zestril) 10 mg PO DAILY [facility] Last Admin: 06/24/16 09:12 Dose: 10 mg Memantine (Namenda) 10 mg PO DAILY [facility] Last Admin: 06/24/16 09:11 Dose: 10 mg Multivitamins/Minerals (Therapeutic-M Tab) 1 tab PO DAILY [facility] Last Admin: 06/24/16 09:10 Dose: 1 tab Sitagliptin Phosphate (Januvia) 100 mg PO QPM [facility] Last Admin: 06/23/16 17:18 Dose: 100 mg - Labs Labs: 06/22/16 07:15 - Constitutional Appears: No Acute Distress - Head Exam Head Exam: ATRAUMATIC, NORMAL INSPECTION, NORMOCEPHALIC - Eye Exam Eye Exam: EOMI, Normal appearance, PERRL Pupil Exam: NORMAL ACCOMODATION, PERRL - ENT Exam ENT Exam: Mucous Membranes Moist, Normal Exam - Neck Exam Neck Exam: Full ROM, Normal Inspection. absent: Lymphadenopathy - Respiratory Exam Respiratory Exam: Decreased Breath Sounds, Prolonged Expiratory Phase, Rales, NORMAL BREATHING PATTERN - Cardiovascular Exam Cardiovascular Exam: REGULAR RHYTHM, +S1, +S2. absent: Murmur - GI/Abdominal Exam GI & Abdominal Exam: Soft, Normal Bowel Sounds. absent: Tenderness - Rectal Exam Rectal Exam: NORMAL INSPECTION - Extremities Exam Extremities Exam: Full ROM, Normal Capillary Refill, Normal Inspection. absent : Joint Swelling, Pedal Edema - Back Exam Back Exam: NORMAL INSPECTION - Neurological Exam Neurological Exam: Alert, Awake, CN II-XII Intact, Normal Gait, Oriented x3 - Psychiatric Exam Psychiatric exam: Normal Affect, Normal Mood - Skin Skin Exam: Dry, Intact, Normal Color, Warm Assessment and Plan - Assessment and Plan (Free Text) Assessment: INTERSTITIAL LUNG DZ ASTHMA URI Plan: CONTINUE PRESENT RX TAPER STEROIDS
[2016-06-24] MEDS: Insulin Detemir 100 Units/ml Inj SC SCH (21:33)
[2016-06-24] MEDS: Enoxaparin 40 mg Syringe SC SCH (21:35)
[2016-06-25] MEDS: Albuterol-Ipratrop 3 mg / 0.5 (3 ml) UD IH SCH ×4 (01:05→20:04)
[2016-06-25] MEDS: guaiFENesin DM 200 mg-20 mg/10 ml UD PO SCH ×4 (04:56→21:07)
[2016-06-25] MEDS: methylPREDNISolone 40 MG in Sodium Chloride 0.9% 50 ML IV SCH (04:56)
[2016-06-25] MEDS: Insulin Lispro (humaLOG) 100 Units/ml Inj SC SCH ×7 (08:07→23:44)
[2016-06-25 08:25] LABS: BASO % 0.3 % (0.0-2.0); EOS % 0.5 % (0.0-4.0); HEMATOCRIT 38.8 % (34.0-47.0); LYMPH # 1.2 K/uL (1.0-4.3); LYMPH % 11.3 % (20.0-40.0); MEAN CELL VOLUME 94.3 fl (81.0-99.0); MEAN CORPUSCULAR HGB CONC 32.9 g/dL (33.0-37.0); MEAN PLATELET VOLUME 8.7 fl (7.2-11.7); MONO # 0.3 K/uL (0.0-0.8); MONO % 2.9 % (0.0-10.0); NEUT # 8.9 K/uL (1.8-7.0); NRBC % 0.1 % (0.0-0.0); RED CELL DISTRIBUTION WIDTH 13.7 % (11.5-14.5); WHITE BLOOD COUNT 10.5 K/uL (4.8-10.8)
[2016-06-25] MEDS: Multivitamin With Minerals Tab PO SCH (08:26)
[2016-06-25] MEDS: GlipiZIDE 10 mg SR Tab PO SCH ×2 (08:26→17:24)
[2016-06-25] MEDS: Enoxaparin 40 mg Syringe SC SCH (08:28)
[2016-06-25 08:32] LABS: ALKALINE PHOSPHATASE 37 U/L (38-126); ALT/SGPT 35 U/L (9-52); AST/SGOT 16 U/L (14-36); BILIRUBIN,TOTAL 0.1 mg/dl (0.2-1.3); BLOOD UREA NITROGEN 21 mg/dl (7-17); CALCIUM 8.8 mg/dL (8.4-10.2); CARBON DIOXIDE 30 mmol/L (22-30); CHLORIDE 105 mmol/L (98-107); GFR AFRICAN-AMERICAN > 60; GLUCOSE,RANDOM 158 mg/dL (65-105); POTASSIUM 4.8 MMOL/L (3.6-5.0); SODIUM 139 mmol/l (132-148); TOTAL PROTEIN 5.6 G/DL (6.3-8.2)
[2016-06-25 08:43] LABS: T4 7.74 ug/dl (5.5-11.0)
[2016-06-25] MEDS: Budesonide 0.5 mg/2 ml Inhal Susp UD INH SCH ×2 (08:48→20:04)
[2016-06-25] MEDS ORDERED: Enoxaparin 40 mg Syringe SC SCH (09:00)
--- NOTE | 2016-06-25 09:20 | PN ---
DATE: 06/25/2016 The patient is seen and examined. Interim events noted. Consults noted and appreciated. Pulmonary followup and intervention noted and appreciated. The patient remains in transitional care unit. The patient is sleepy, arousable, has no specific complaint, no chest pain or shortness of breath at res t. The patient ____ members. PHYSICAL EXAMINATION: GENERAL: The patient is in no acute distress. VITAL SIGNS: Stable. HEART: S1, S2 normal, regular. LUNGS: Good bilateral air entry. ABDOMEN: Soft, nontender. EXTREMITIES: No calf swelling, no tenderness, no acute ischemia. CENTRAL NERVOUS SYSTEM: Essentially unchanged. DIAGNOSTIC DATA: Available diagnostic data reviewed. Overall, the patient's general medical condition is stable. PLAN: As ordered. Paulie Weaver MD cc: [id number] TT: 06/25/2016 09:19:57 Confirmation # [id number] Dictation # [id number] jn
--- NOTE | 2016-06-25 11:19 | PN ---
DATE: 06/25/2016 ROOM: 708 This is an 89-year-old female with recent uncontrolled type 2 insulin-requiring diabetes related to t he intercurrent IV steroid therapy as given. Her dose regimen has been lowered and tapered down now to 40 mg once a day as ordered. Supervening hyperglycemic accelerations have been expected, but they have improved accordingly as noted. The glucose values today have ranged from 146-238 and 353 mg/dL. Her latest chemistries include a BU N of 21, sodium 139, potassium 4.8, chloride 105, CO2 30, glucose 158 and creatinine 0.6. So at this time, we will modify her basal and bolus insulin regimen as the IV steroids have been tape red down as noted. We will lower her Levemir now to 14 units subQ at bedtime daily as ordered and th is will be started tonight as given. We will also continue the low-dose correction scale using Humal og insulin as given. Moreover, we will also lower the Humalog to 6 units subQ t.i.d. before meals to start at lunchtime today as ordered. We will titrate incrementally as indicated to optimize metabol ic control. We will obtain serial chemistries and supplement accordingly as needed. Moreover, we wi ll continue the glipizide given as 10 mg b.i.d. and Januvia given as 100 mg once daily as ordered. W e will titrate incrementally as indicated to optimize metabolic control. We will follow. Romy De Jesus MD cc: [id number] TT: 06/25/2016 11:19:01 Confirmation # [id number] Dictation # [id number] en
[2016-06-25] MEDS ORDERED: Insulin Detemir 100 Units/ml Inj SC SCH (22:00)
[2016-06-26] MEDS: Albuterol-Ipratrop 3 mg / 0.5 (3 ml) UD IH SCH ×4 (01:10→20:22)
[2016-06-26] MEDS: guaiFENesin DM 200 mg-20 mg/10 ml UD PO SCH ×4 (04:39→21:42)
[2016-06-26] MEDS: methylPREDNISolone 40 MG in Sodium Chloride 0.9% 50 ML IV SCH (04:39)
[2016-06-26] MEDS: Insulin Lispro (humaLOG) 100 Units/ml Inj SC SCH ×6 (06:29→21:43)
[2016-06-26] MEDS ORDERED: Insulin Detemir 100 Units/ml Inj SC SCH ×2 (07:24→22:00)
[2016-06-26] MEDS: Budesonide 0.5 mg/2 ml Inhal Susp UD INH SCH ×2 (07:54→20:22)
[2016-06-26] MEDS: GlipiZIDE 10 mg SR Tab PO SCH ×2 (08:57→17:29)
[2016-06-26] MEDS: Enoxaparin 40 mg Syringe SC SCH (09:03)
[2016-06-26] MEDS: Multivitamin With Minerals Tab PO SCH (09:04)
--- NOTE | 2016-06-26 09:08 | PN ---
DATE: 06/26/2016 The patient seen and examined. Interim events noted. Consults noted, appreciated. Case discussed w ith patient and patient's daughter at bedside at length. The patient feels okay. Much more awake, r esponsive. Denies any specific complaint. No chest pain, no shortness of breath at rest. PHYSICAL EXAMINATION: GENERAL: The patient is in no acute distress. VITAL SIGNS: Stable. HEART: S1, S2 normal, regular. LUNGS: Good bilateral air exchange. ABDOMEN: Soft, nontender. EXTREMITIES: No edema, no calf swelling, no tenderness, no acute ischemia. CENTRAL NERVOUS SYSTEM: Essentially unchanged. DIAGNOSTIC DATA: Available reviewed. Overall, patient's general medical condition is stable. PLAN: As ordered. Paulie Weaver MD cc: [id number] TT: 06/26/2016 09:07:44 Confirmation # [id number] Dictation # [id number] en
[2016-06-27] MEDS: Albuterol-Ipratrop 3 mg / 0.5 (3 ml) UD IH SCH ×4 (01:01→20:25)
[2016-06-27] MEDS: guaiFENesin DM 200 mg-20 mg/10 ml UD PO SCH ×4 (04:37→22:00)
--- NOTE | 2016-06-27 08:02 | PN ---
DATE: 06/27/2016 The patient seen and examined. Interim events noted. Consults noted, appreciated. The patient katherine ins in transitional care unit. The patient . Feels okay. No specific complaint, no chest pain , no shortness of breath at rest. PHYSICAL EXAMINATION: GENERAL: The patient is in no acute distress. VITAL SIGNS: Stable. HEART: S1, S2 normal, regular. LUNGS: Good bilateral air exchange. ABDOMEN: Soft, nontender. EXTREMITIES: No calf swelling, no tenderness, no acute ischemia. CENTRAL NERVOUS SYSTEM: Essentially unchanged. DIAGNOSTIC DATA: Available reviewed. Overall, patient is slowly improving. PLAN: As ordered. Paulie Weaver MD cc: [id number] TT: 06/27/2016 08:01:28 Confirmation # [id number] Dictation # [id number] en
[2016-06-27] MEDS: Multivitamin With Minerals Tab PO SCH (08:36)
[2016-06-27] MEDS: GlipiZIDE 10 mg SR Tab PO SCH ×2 (08:37→16:45)
[2016-06-27] MEDS: Enoxaparin 40 mg Syringe SC SCH (08:39)
[2016-06-27] MEDS: Insulin Lispro (humaLOG) 100 Units/ml Inj SC SCH ×5 (08:40→22:02)
--- NOTE | 2016-06-27 08:47 | CP.PCM.PN ---
Subjective - Date & Time of Evaluation Date of Evaluation: 06/27/16 Time of Evaluation: 08:47 - Subjective Subjective: DENIES CHEST PAINS/SOB Objective - Vital Signs/Intake and Output Vital Signs (last 24 hours): Temp Pulse Resp BP Pulse Ox 97.9 F 84 18 118/81 99 06/27/16 07:30 06/27/16 08:36 06/27/16 07:30 06/27/16 08:36 06/27/16 07:30 - Medications Medications: Current Medications Acetaminophen (Tylenol 325mg Tab) 650 mg PO Q4 PRN PRN Reason: Fever >100.4 F Albuterol/Ipratropium (Duoneb 3 Mg/0.5 Mg (3 Ml) Ud) 3 ml IH RQ6 [facility] Last Admin: 06/27/16 01:01 Dose: 3 ml Amlodipine Besylate (Norvasc) 5 mg PO QPM [facility] Last Admin: 06/26/16 17:30 Dose: 5 mg Atorvastatin Calcium (Lipitor) 10 mg PO DAILY@2100 [facility] Last Admin: 06/26/16 21:46 Dose: 10 mg Bisacodyl (Dulcolax) 10 mg MD ONCE PRN PRN Reason: Constipation Budesonide (Pulmicort Respules) 0.5 mg INH RBID [facility] Last Admin: 06/26/16 20:22 Dose: 0.5 mg Dextrose (Glutose 15) 0 gm PO ONCE PRN; Protocol PRN Reason: Hypoglycemia Protocol Dextrose (Dextrose 50% Inj) 0 ml IV STAT PRN; Protocol PRN Reason: Hyglycemia Protocol Duloxetine HCl (Cymbalta) 60 mg PO DAILY [facility] Last Admin: 06/27/16 08:37 Dose: 60 mg Enoxaparin Sodium (Lovenox) 40 mg SC DAILY [facility] PRN Reason: Protocol Last Admin: 06/27/16 08:39 Dose: 40 mg Glipizide (Glucotrol Xl) 10 mg PO ACBD [facility] Last Admin: 06/27/16 08:37 Dose: 10 mg Glucagon (Glucagen Diagnostic Kit) 0 mg IM STAT PRN; Protocol PRN Reason: Hypoglycemia Protocol Guaifenesin/Dextromethorphan (Robitussin Dm) 10 ml PO Q6 [facility] Last Admin: 06/27/16 04:37 Dose: Not Given Home Med (Multivitamin [Multi-Vitamin Daily]) 1 tab PO DAILY [facility] Insulin Detemir (Levemir) 12 units SC HS [facility] Last Admin: 06/26/16 21:42 Dose: 12 unit Insulin Human Lispro (Humalog) 0 units SC ACHS [facility] PRN Reason: Protocol Last Admin: 06/27/16 08:40 Dose: Not Given Lactulose (Enulose) 20 gm PO BID PRN PRN Reason: Constipation Last Admin: 06/18/16 18:25 Dose: 20 gm Lisinopril (Zestril) 10 mg PO DAILY [facility] Last Admin: 06/27/16 08:36 Dose: 10 mg Memantine (Namenda) 10 mg PO DAILY [facility] Last Admin: 06/27/16 08:38 Dose: 10 mg Multivitamins/Minerals (Therapeutic-M Tab) 1 tab PO DAILY [facility] Last Admin: 06/27/16 08:36 Dose: 1 tab Prednisone (Prednisone Tab) 20 mg PO DAILY [facility] Last Admin: 06/27/16 08:37 Dose: 20 mg Sitagliptin Phosphate (Januvia) 100 mg PO QPM [facility] Last Admin: 06/26/16 17:30 Dose: 100 mg - Labs Labs: 06/25/16 06:30 06/25/16 06:00 - Constitutional Appears: No Acute Distress - Head Exam Head Exam: ATRAUMATIC, NORMAL INSPECTION, NORMOCEPHALIC - Eye Exam Eye Exam: EOMI, Normal appearance, PERRL Pupil Exam: NORMAL ACCOMODATION, PERRL - ENT Exam ENT Exam: Mucous Membranes Moist, Normal Exam - Neck Exam Neck Exam: Full ROM, Normal Inspection. absent: Lymphadenopathy - Respiratory Exam Respiratory Exam: Decreased Breath Sounds, Prolonged Expiratory Phase, NORMAL BREATHING PATTERN - Cardiovascular Exam Cardiovascular Exam: REGULAR RHYTHM, +S1, +S2. absent: Murmur - GI/Abdominal Exam GI & Abdominal Exam: Soft, Normal Bowel Sounds. absent: Tenderness - Rectal Exam Rectal Exam: NORMAL INSPECTION - Extremities Exam Extremities Exam: Full ROM, Normal Capillary Refill, Normal Inspection. absent : Joint Swelling, Pedal Edema - Back Exam Back Exam: NORMAL INSPECTION - Neurological Exam Neurological Exam: Alert, Awake, CN II-XII Intact, Normal Gait, Oriented x3 - Psychiatric Exam Psychiatric exam: Normal Affect, Normal Mood - Skin Skin Exam: Dry, Intact, Normal Color, Warm Assessment and Plan - Assessment and Plan (Free Text) Assessment: INTERSTITIAL LUNG DZ URI-IMPROVED Plan: D/C STEROIDS NO FURTHER PULMONARY INTERVENTION FOR NOW WILL SIGN OFF CASE AND SEE AGAIN AT YOUR REQUEST
[2016-06-27] MEDS: Budesonide 0.5 mg/2 ml Inhal Susp UD INH SCH (09:20)
--- NOTE | 2016-06-27 16:34 | PN ---
DATE: 06/27/2016 ROOM: 708 This is an 89-year-old female with recent uncontrolled type 2 insulin-requiring diabetes, now being f ollowed closely for metabolic management. Her glycemic levels are fluctuating, but much improved at this time and the latest chemistries showed a BUN of 21, sodium 139, potassium 4.8, chloride 105, CO2 of 30, glucose 158 and creatinine 0.6. Her latest glucose values are still fluctuating and have ran ged from 166-291 and 407 mg/dL. She is currently still on oral prednisone given as 20 mg once daily as ordered. So, we will titrate her Levemir given as basal insulin at bedtime to a dose of 16 units subQ at bedtime daily to start tonight. We will titrate incrementally as indicated to optimize metab olic control. We will also continue the low-dose correction scale using Humalog insulin as given. Nely shelley will actually have to restart her NovoLog given as 6 units subQ t.i.d. before meals as given. Sheryl albert, this will be started tonight as ordered. We will continue the low-dose correction scale using Hum alog insulin as given to obviate hypoglycemia and detailed orders have been given. We will follow an d advise accordingly. Romy De Jesus MD cc: [id number] TT: 06/27/2016 16:34:32 Confirmation # [id number] Dictation # [id number]
[2016-06-27] MEDS ORDERED: Insulin Detemir 100 Units/ml Inj SC SCH (22:00)
[2016-06-28] MEDS: Albuterol-Ipratrop 3 mg / 0.5 (3 ml) UD IH SCH ×2 (02:35→07:27)
[2016-06-28] MEDS: guaiFENesin DM 200 mg-20 mg/10 ml UD PO SCH ×2 (05:31→09:50)
--- NOTE | 2016-06-28 08:13 | PN ---
DATE: 06/28/2016 The patient seen and examined. Interim events noted. Consults noted, appreciated. Pulmonary and en docrinology interventions noted and appreciated. The patient feels okay. No specific complaint of c hest pain, no shortness of breath. PHYSICAL EXAMINATION: GENERAL: The patient is in no acute distress. VITAL SIGNS: Stable. HEART: S1, S2 normal, regular. LUNGS: Good bilateral air entry. ABDOMEN: Soft, nontender. EXTREMITIES: No edema, no calf swelling, no tenderness, no acute ischemia. CENTRAL NERVOUS SYSTEM: Essentially unchanged. DIAGNOSTIC DATA: Available diagnostic data reviewed. Accu-Cheks are still running too high, but is being managed by endocrinology. Overall, patient's general medical condition is improving. PLAN: As ordered. Paulie Weaver MD cc: [id number] TT: 06/28/2016 08:12:28 Confirmation # [id number] Dictation # [id number] mn
[2016-06-28 08:17] VITALS: BP 104/61; RESP 18; TEMP 97; O2SAT 100
[2016-06-28] MEDS: Multivitamin With Minerals Tab PO SCH (08:37)
[2016-06-28] MEDS: GlipiZIDE 10 mg SR Tab PO SCH (08:38)
[2016-06-28] MEDS: Insulin Lispro (humaLOG) 100 Units/ml Inj SC SCH ×4 (08:40→12:49)
[2016-06-28] MEDS: Enoxaparin 40 mg Syringe SC SCH (08:40)
[2016-06-28 08:41] VITALS: PULSE 75
[2016-06-28] MEDS ORDERED: Insulin Detemir 100 Units/ml Inj SC SCH (22:00)
== END 2016-06-28 14:15 | DRG 197 ==
LOC: H.TCU 16:16
PROVIDERS: ADMIT Internal Medicine; ATTEND Internal Medicine
PROC: 3E0F7GC Introduction of Other Therapeutic Substance into Respiratory Tract, Via Natural or Artificial Opening (ICD-10-PCS; principal; 2016-06-15)
PROC: F07L6ZZ Therapeutic Exercise Treatment of Musculoskeletal System - Lower Back / Lower Extremity (ICD-10-PCS; 2016-06-15)
PROC: F08Z4FZ Home Management Treatment using Assistive, Adaptive, Supportive or Protective Equipment (ICD-10-PCS; 2016-06-15)
DX: J84.9 Interstitial pulmonary disease, unspecified (principal); F32.1 Major depressive disorder, single episode, moderate; E11.65 Type 2 diabetes mellitus with hyperglycemia; J44.9 Chronic obstructive pulmonary disease, unspecified; I10 Essential (primary) hypertension; Z87.891 Personal history of nicotine dependence; E78.00 Pure hypercholesterolemia, unspecified; Z90.49 Acquired absence of other specified parts of digestive tract; E78.5 Hyperlipidemia, unspecified; J06.9 Acute upper respiratory infection, unspecified; M81.0 Age-related osteoporosis without current pathological fracture; J45.909 Unspecified asthma, uncomplicated; I25.10 Atherosclerotic heart disease of native coronary artery without angina pectoris; I73.9 Peripheral vascular disease, unspecified